=== PATIENT | male | born 1935 | race Caucasian/White ===

== ENCOUNTER 2018-11-15 15:09 | Inpatient (IN) | payer MEDICARE, MEDICAID ==
[2018-11-15 15:54] LABS: % BASOPHILS 0.2 % (0.0-2.0); % EOSINOPHILS 0.6 % (0.0-5.0); % LYMPHOCYTES 7.2 % (20.0-50.0); EOSINOPHILE ABSOLUTE 0.1 Th/cmm (0.1-0.4); HEMATOCRIT 37.1 % (41.0-60); HEMOGLOBIN 12.2 gm/dL (12-16); MEAN CELL VOLUME 96.8 fl (80-99); MEAN CORPUSCULAR HEMOGLOBIN 31.8 pg (27.0-31.0); MEAN CORPUSCULAR HGB CONC 32.8 pg (28.0-36.0); MEAN PLATELET VOLUME 7.6 fl; NEUTROPHILE ABSOLUTE 12.3 Th/cmm (1.8-8.0); PLATELET COUNT 241 Th/cmm (150-400); RED BLOOD COUNT 3.84 Mil/cmm (3.80-5.80); RED CELL DISTRIBUTION WIDTH 12.1 % (11.5-20.0); WHITE BLOOD COUNT 14.4 Th/cmm (4.8-10.8)
[2018-11-15 16:09] LABS: ALB/GLOB RATIO 1.1 (1.0-1.8); ALBUMIN 3.4 gm/dL (4.2-5.5); ALKALINE PHOSPHATASE 47 U/L (34-104); ANION GAP 11.5 (7.0-16.0); BILIRUBIN,TOTAL 0.2 mg/dL (0.3-1.0); BUN - UREA NITROGEN 29 mg/dL (7-25); CALCIUM SERUM 8.7 mg/dL (8.6-10.3); CARBON DIOXIDE 27.8 mEq/L (21.0-31.0); CHLORIDE 93 mEq/L (98-107); GLUCOSE 124 mg/dL (70-105); POTASSIUM SERUM 4.3 mEq/L (3.5-5.1); SGOT 12 U/L (13-39); SGPT/ALT 9 U/L (7-52); SODIUM SERUM 128 mEq/L (136-145); TOTAL PROTEIN,SERUM 6.5 gm/dL (6.0-8.3)
--- NOTE | 2018-11-15 16:25 | ED Physician Chart ---
ED Chief Complaint/HPI - Patient Information Date Seen:: 11/15/18 Time Seen:: 15:20 Chief Complaint:: weight loss of 16 pounds in 6 months History of Present Illness:: weight loss of 16 pounds in 6 months and 12 pounds in 3 months. Allergies:: Allergies Allergy/AdvReac Type Severity Reaction Status Date / Time No Known Allergies Allergy Unverified 04/07/17 00:43 Vitals:: Vital Signs - 8 hr 11/15/18 15:20 Temp 97.4 F HR 68 RR 19 BP 106/40 O2 Sat % 99 Review:: Nurse's Note Reviewed ED Review of Systems - Review of Systems General/Constitutional: No fever, No chills, Weight loss, Weakness, No diaphoresis, No edema, No loss of appetite Skin: No skin lesions, No rash, No bruising Head: No headache, No light-headedness Eyes: No loss of vision, No pain, No diplopia ENT: No earache, No nasal drainage, No sore throat, No tinnitus Neck: No neck pain, No swelling, No thyromegaly, No stiffness, No mass noted Cardio Vascular: No chest pain, No palpitations, No PND, No orthopnea, No edema Pulmonary: No SOB, No cough, No sputum, No wheezing GI: No nausea, No vomiting, No diarrhea, No pain, No melena, No hematochezia, No constipation, No hematemesis G/U: No dysuria, No frequency, No hematuria Musculoskeletal: No bone or joint pain, No back pain, No muscle pain Endocrine: No polyuria, No polydipsia Psychiatric: No prior psych history, No depression, No anxiety, No suicidal ideation ED Past Medical History - Past Medical History Obtainable: No Past Medical History: PUD/GERD, Thyroid disorder, Dementia, Other (cerebral palsy; GI hemorrhage; low potassium; chronic kidney disease; BPH) Psychiatricy History: Schizophrenia, Bipolar, Dementia Family Medical History - Family Member Mother History Unknown: Yes ED Physical Exam - Physical Examination General/Constitutional: Awake, No distress, Non-toxic appearing Other Gen/Cons comments:: chronically ill appearing Other Head comments:: microcephaly Eyes: Lids, conjuctiva normal, PERRL ENMT: External ears, nose nl Neck: Nontender, No nuchal rigidity, No stridor Respiratory: Nl effort/Exclusion, Clear to Auscultation, No Wheeze/Rhonchi/Rales Cardio Vascular: RRR, No murmur, gallop, rubs, NL S1 S2 GI: No tenderness/rebounding/guarding, No organomegaly, No hernia, Normal BS's, Nondistended, No mass/bruits, No McBurney tenderness Extremities: No tenderness or effusion, Full ROM, No edema ED Labs/Radiology/EKG Results - Lab Results Results: Laboratory Tests 11/15/18 11/15/18 15:48 15:48 WBC 14.4 H RBC 3.84 Hgb 12.2 Hct 37.1 L MCV 96.8 MCH 31.8 H MCHC Differential 32.8 RDW 12.1 Plt Count 241 MPV 7.6 Neutrophils % 85.0 H Lymphocytes % 7.2 L Monocytes % 7.0 Eosinophils % 0.6 Basophils % 0.2 Sodium 128 L Potassium 4.3 Chloride 93 L Carbon Dioxide 27.8 Anion Gap 11.5 BUN 29 H Creatinine 1.0 Est GFR ( Amer) TNP Est GFR (Non-Af Amer) TNP BUN/Creatinine Ratio 29.0 Glucose 124 H Calcium 8.7 Phosphorus 4.0 Magnesium 2.0 Total Bilirubin 0.2 L AST 12 L ALT 9 Alkaline Phosphatase 47 Total Protein 6.5 Albumin 3.4 L Globulin 3.1 Albumin/Globulin Ratio 1.1 ED Assessment - Assessment General Assessment: on my reading of the CXR, it appears that there is a right upper lobe mass. I am having the CXR sent to the radiologist to see if he agrees with my reading before I put in an order for a CT scan. sign out given to Dr. Willis at 4:24 p.m. ED Septic Shock - . Is Septic Shock (SBP<90, OR Lactate>4 mmol\L) present?: No - <6hrs of presentation: Vital Signs: Vital Signs - 8 hr 11/15/18 15:20 Temp 97.4 F HR 68 RR 19 BP 106/40 O2 Sat % 99 ED Reassessment (Disposition) - Reassessment Reassessment Condition:: Unchanged - Diagnosis Diagnosis:: Leukocytosis Possible right upper lobe mass Low sodium Low chloride sign out given to Dr. Willis at 4:15 p.m. - Patient Disposition Condition at Disposition:: Stable, Unchanged
[2018-11-15 16:32] LABS: URINE SOURCE CATH
[2018-11-15 16:34] LABS: URINE BILIRUBIN NEGATIVE (NEGATIVE); URINE BLOOD SMALL (NEGATIVE); URINE GLUCOSE (UA) NEGATIVE (NEGATIVE); URINE KETONE NEGATIVE (NEGATIVE); URINE LEUKOCYTE ESTERASE LARGE (NEGATIVE); URINE MICROSCOPIC INDICATED? YES; URINE NITRATE NEGATIVE (NEGATIVE); URINE PH 7.5 (4.6 - 8.0); URINE PROTEIN TRACE mg/dL (NEGATIVE); URINE UROBILINOGEN 0.2 E.U./dL (0.2 - 1.0)
[2018-11-15 16:40] LABS: URINE COLOR YELLOW
[2018-11-15 16:41] LABS: URINE CLARITY CLEAR (CLEAR)
[2018-11-15 16:50] LABS: URINE BACTERIA 3+ /hpf (NONE SEEN); URINE EPITHELIAL CELLS FEW /lpf (FEW)
[2018-11-15] MEDS ORDERED: IOHEXOL 300mgI/mL 100 ML VIAL ONE (16:56)
[2018-11-15] MEDS ORDERED: cefTRIAXone 1 GM in Sodium Chloride 0.9% 50 ML IV ONE (16:56)
[2018-11-15 18:27] VITALS: BP 122/58
[2018-11-15] MEDS ORDERED: Fleet Enema 135 mL RC PRN (18:58)
[2018-11-15] MEDS ORDERED: Polyvinyl Alcohol Ophth Soln 15 mL Bottle EACH EYE PRN (18:58)
[2018-11-15] MEDS ORDERED: Magnesium Hydroxide (MOM) 30 mL UDC PO PRN (18:58)
--- NOTE | 2018-11-15 19:38 | History & Physical ---
ADMIT DATE: 11/15/2018 INTERNAL MEDICINE HISTORY AND PHYSICAL CHIEF COMPLAINT: Poor p.o. intake, not taking medication, and generalized weakness. HISTORY OF PRESENT ILLNESS: This is an 83-year-old male with history of cerebral palsy, BPH, hypothyroid, GERD, and dementia, admitted from his nursing facility secondary to severe weight loss of greater than 10 pounds in the last several months. The patient has not been eating or taking his medication. The patient was brought in the ER, found to be dehydrated and with a possible mass on the chest x-ray. The patient also had a finding of urinary tract infection. The patient is a poor historian, unable to answer complex questions. PAST MEDICAL HISTORY: As mentioned in the history of present illness. PAST SURGICAL HISTORY: Unable to obtain from the patient. ALLERGIES: No known drug allergies. MEDICATIONS: Tylenol, aspirin, calcium, diltiazem, Depakote, Colace, ____, Synthroid, metoprolol, pantoprazole, potassium, prednisone, Detrol, vitamin D. FAMILY HISTORY: Noncontributory. SOCIAL HISTORY: The patient lives in a longterm. The patient requires 24-hour total care. REVIEW OF SYSTEMS: This is limited secondary to the patient's current mental state. We will try to obtain more detailed review of systems at a later date by talking to the family members, ____. We will try to get information from the nursing staff from the rehabilitation. PHYSICAL EXAMINATION: VITAL SIGNS: Blood pressure 106/40, respirations 19, pulse 68, temperature 97.4. GENERAL: Elderly male, appears chronically ill. NECK: Supple. No mass. LUNGS: Equal breath sounds with few rhonchi. HEART: Regular rate and rhythm without systolic ejection murmur. ABDOMEN: Soft, globular. EXTREMITIES: Positive excoriations. NEUROLOGIC: Limited. LABORATORY DATA: WBC 14, hemoglobin 12, platelets 241. Sodium 128, potassium 4.3, BUN 29, creatinine 1.0, glucose 124, AST and ALT 12 and 9, albumin 3.4. UA with many bacteria, large leukocytes and WBC. ASSESSMENT: 1. Urinary tract infection. 2. Generalized weakness. 3. Abnormal chest x-ray. 4. Weight loss. 5. Hypothyroidism. 6. Dementia. 7. Cerebral palsy. 8. Chronic kidney disorder. 9. Benign prostatic hypertrophy. 10. Psych disorder. PLAN: We will continue the patient on oxygen and bronchodilator treatment and continue antibiotic. We will follow the patient's urine culture and C and S. We will review the patient's chest x-ray and possibly need a CT of the chest. Continue with current care. We will follow the patient closely. [facility]# [id number]
[2018-11-15] MEDS: D5-0.9%NS 1,000 ML IV SCH (21:39)
[2018-11-15] MEDS: Diltiazem 30 mg Tab PO SCH (22:22)
[2018-11-16] MEDS: Levothyroxine 0.1 Mg Tab PO SCH (06:40)
[2018-11-16] MEDS: Ipratropium Neb 0.5 mg/2.5 mL UD HHN SCH ×4 (06:44→19:18)
[2018-11-16] MEDS: Albuterol Nebulizer 2.5mg/3mL HHN SCH ×4 (06:44→19:18)
--- NOTE | 2018-11-16 08:53 | Diagnostic Imaging Report ---
CT scan of the chest with intravenous contrast HISTORY: Mass. Total DLP equals 186 CTDI equals 5.7 Following administration of intravenous contrast, axial sections were obtained from a level above the clavicles down to level below the diaphragm. The heart size appears somewhat generous. Calcifications within the right hilar and mediastinal lymph nodes consistent with old granulomatous disease. Atherosclerotic calcination seen in the aorta. Infiltrate noted in the right upper lobe. Findings may be chronic. However, pneumonia cannot be excluded. Nonspecific interstitial changes also noted within the right lower lobe along with mild pleural thickening. The overall appearance suggests a chronic etiology. No free pleural fluid. IMPRESSION: 1. Infiltrate right upper lobe. The changes may be chronic. Pneumonia cannot be excluded. Clinical correlation is needed 2. Nonspecific interstitial changes right lower lobe with mild pleural thickening. The overall appearance suggests a chronic etiology. Mild pleural thickening also noted in the left lower hemithorax. Question minimal pleural fluid. 3. Findings consistent with old granulomatous disease 4. Generous heart size of evidence of atherosclerotic and coronary artery calcification
--- NOTE | 2018-11-16 08:56 | Diagnostic Imaging Report ---
Portable chest x-ray HISTORY: Weight loss Patient is markedly rotated. The heart appears somewhat enlarged. Cardiac pacemaker lead wire projects over the right ventricle. Suboptimal visualization of the right apical region of the chest due to patient's overlying head. Questionable density within the right apical area. A CT scan would provide additional clarification. No pleural fluid is seen. IMPRESSION: 1. Limited evaluation particularly of the right apical region. Questionable density within the right upper lobe. A CT scan would provide clarification. 2. Cardiomegaly with pacemaker placement
[2018-11-16] MEDS ORDERED: Tolterodine Tartrate 4 mg ER Cap PO SCH (09:00)
[2018-11-16] MEDS: Multivitamin w/ Minerals Tab PO SCH (09:10)
[2018-11-16] MEDS: Potassium Chloride 10 mEq ER Tab PO SCH (09:10)
[2018-11-16] MEDS: Pantoprazole 40 mg EC Tab PO SCH (09:10)
[2018-11-16] MEDS: Diltiazem 30 mg Tab PO SCH ×3 (09:11→21:30)
[2018-11-16] MEDS: Aspirin 81mg Chewable Tab PO SCH (09:12)
[2018-11-16] MEDS: Calcium Carb/Vit D 500 mg/200 U Tab PO SCH (12:31)
[2018-11-16] MEDS: D5-0.9%NS 1,000 ML IV SCH (12:51)
--- NOTE | 2018-11-16 13:07 | Internal Medicine Prog Note ---
Internal Medicine Subjective - Subjective Service Date: 11/16/18 Patient seen and examined:: with staff Patient is:: awake Per staff patient has:: tolerating meds Internal Medicine Objective - Results Result Diagrams: 11/15/18 15:48 11/15/18 15:48 Recent Labs: Laboratory Last Values WBC 14.4 Th/cmm (4.8-10.8) H 11/15/18 15:48 RBC 3.84 Mil/cmm (3.80-5.80) 11/15/18 15:48 Hgb 12.2 gm/dL (12-16) 11/15/18 15:48 Hct 37.1 % (41.0-60) L 11/15/18 15:48 MCV 96.8 fl (80-99) 11/15/18 15:48 MCH 31.8 pg (27.0-31.0) H 11/15/18 15:48 MCHC Differential 32.8 pg (28.0-36.0) 11/15/18 15:48 RDW 12.1 % (11.5-20.0) 11/15/18 15:48 Plt Count 241 Th/cmm (150-400) 11/15/18 15:48 MPV 7.6 fl 11/15/18 15:48 Neutrophils % 85.0 % (40.0-80.0) H 11/15/18 15:48 Lymphocytes % 7.2 % (20.0-50.0) L 11/15/18 15:48 Monocytes % 7.0 % (2.0-10.0) 11/15/18 15:48 Eosinophils % 0.6 % (0.0-5.0) 11/15/18 15:48 Basophils % 0.2 % (0.0-2.0) 11/15/18 15:48 Sodium 128 mEq/L (136-145) L 11/15/18 15:48 Potassium 4.3 mEq/L (3.5-5.1) 11/15/18 15:48 Chloride 93 mEq/L (98-107) L 11/15/18 15:48 Carbon Dioxide 27.8 mEq/L (21.0-31.0) 11/15/18 15:48 Anion Gap 11.5 (7.0-16.0) 11/15/18 15:48 BUN 29 mg/dL (7-25) H 11/15/18 15:48 Creatinine 1.0 mg/dL (0.7-1.3) 11/15/18 15:48 Est GFR ( Amer) TNP 11/15/18 15:48 Est GFR (Non-Af Amer) TNP 11/15/18 15:48 BUN/Creatinine Ratio 29.0 11/15/18 15:48 Glucose 124 mg/dL (70-105) H 11/15/18 15:48 Calcium 8.7 mg/dL (8.6-10.3) 11/15/18 15:48 Phosphorus 4.0 mg/dL (2.5-5.0) 11/15/18 15:48 Magnesium 2.0 mg/dL (1.9-2.7) 11/15/18 15:48 Total Bilirubin 0.2 mg/dL (0.3-1.0) L 11/15/18 15:48 AST 12 U/L (13-39) L 11/15/18 15:48 ALT 9 U/L (7-52) 11/15/18 15:48 Alkaline Phosphatase 47 U/L (34-104) 11/15/18 15:48 Total Protein 6.5 gm/dL (6.0-8.3) 11/15/18 15:48 Albumin 3.4 gm/dL (4.2-5.5) L 11/15/18 15:48 Globulin 3.1 gm/dL 11/15/18 15:48 Albumin/Globulin Ratio 1.1 (1.0-1.8) 11/15/18 15:48 TSH 3.04 uIU/ml (0.34-5.60) 11/15/18 15:48 Urine Source CATH 11/15/18 16:23 Urine Color YELLOW 11/15/18 16:23 Urine Clarity CLEAR (CLEAR) 11/15/18 16:23 Urine pH 7.5 (4.6 - 8.0) 11/15/18 16:23 Ur Specific Imperial 1.015 (1.005-1.030) 11/15/18 16:23 Urine Protein TRACE mg/dL (NEGATIVE) 11/15/18 16:23 Urine Glucose (UA) NEGATIVE mg/dL (NEGATIVE) 11/15/18 16:23 Urine Ketones NEGATIVE mg/dL (NEGATIVE) 11/15/18 16:23 Urine Blood SMALL (NEGATIVE) H 11/15/18 16:23 Urine Nitrate NEGATIVE (NEGATIVE) 11/15/18 16:23 Urine Bilirubin NEGATIVE (NEGATIVE) 11/15/18 16:23 Urine Urobilinogen 0.2 E.U./dL (0.2 - 1.0) 11/15/18 16:23 Ur Leukocyte Esterase LARGE (NEGATIVE) H 11/15/18 16:23 Urine RBC 2-5 /hpf (0-5) H 11/15/18 16:23 Urine WBC 6-10 /hpf (0-5) 11/15/18 16:23 Ur Epithelial Cells FEW /lpf (FEW) 11/15/18 16:23 Urine Bacteria 3+ /hpf (NONE SEEN) H 11/15/18 16:23 - Physical Exam Vitals and I&O: Vital Signs Temp 97.2 F 11/16/18 12:00 Pulse 137 11/16/18 12:00 Resp 18 11/16/18 12:00 BP 103/49 11/16/18 12:00 Pulse Ox 93 11/16/18 12:00 Intake & Output 11/15/18 11/16/18 11/16/18 18:59 06:59 18:59 Intake Total 150 1000 Balance 150 1000 Weight (lbs) 127 lb 11.2 oz 125 lb 9.6 oz Intake: Intake, IV Amount 50 1000 Cefepime 1 gm In Dextrose 50 5% 50 ml @ 100 mls/hr IV Q12HR REPLACED BY [facility] Rx#:[id number] D5-0.9%Ns 1,000 ml @ 80 1000 mls/hr IV .[id number] REPLACED BY [facility] Rx #:[id number] Oral 100 Other: # Voids 2 # Bowel Movements 0 Weight Source Bedscale Bedscale Active Medications: Current Medications Acetaminophen (Tylenol) 650 mg PO Q4HR PRN PRN Reason: MILD PAIN 1-3 OR FEVER >101 Stop: 01/14/19 18:57 Albuterol Sulfate (Albuterol 2.5mg/3ml Neb Ud) 2.5 mg HHN QIDRT REPLACED BY [facility] Stop: 01/15/19 06:59 Last Admin: 11/16/18 10:41 Dose: 2.5 mg Artificial Tears (Artificial Tears Ophth Soln) 1 drop EACH EYE BID PRN PRN Reason: DRY EYES Stop: 01/14/19 18:57 Ascorbic Acid (Vitamin C) 500 mg PO DAILY REPLACED BY [facility] Stop: 01/15/19 08:59 Last Admin: 11/16/18 09:11 Dose: 500 mg Aspirin (Aspirin Chewable) 81 mg PO DAILY REPLACED BY [facility] Stop: 01/15/19 08:59 Last Admin: 11/16/18 09:12 Dose: 81 mg Bisacodyl (Dulcolax 10 Mg Supp) 10 mg RC DAILY PRN PRN Reason: IF MOM INEFFECTIVE Stop: 01/14/19 18:57 Calcium/Vitamin D (Oscal W/Vitamin D) 1 tab PO 1200 REPLACED BY [facility] Stop: 01/15/19 11:59 Last Admin: 11/16/18 12:31 Dose: 1 tab Diltiazem HCl (Cardizem) 30 mg PO TID REPLACED BY [facility] Stop: 01/14/19 20:59 Last Admin: 11/16/18 09:11 Dose: 30 mg Divalproex Sodium (Depakote Sprinkle) 250 mg PO BID REPLACED BY [facility]; Protocol Stop: 01/15/19 08:59 Last Admin: 11/16/18 09:11 Dose: 250 mg Docusate Sodium (Colace) 100 mg PO DAILY REPLACED BY [facility] Stop: 01/15/19 08:59 Last Admin: 11/16/18 09:12 Dose: 100 mg Donepezil HCl (Aricept) 10 mg PO HS REPLACED BY [facility] Stop: 01/14/19 20:59 Last Admin: 11/15/18 22:23 Dose: 10 mg Cefepime HCl 1 gm/ Dextrose 50 mls @ 100 mls/hr IV Q12HR CHAD Stop: 01/14/19 20:59 Last Admin: 11/16/18 09:09 Dose: 100 mls/hr Dextrose/Sodium Chloride (D5-0.9%Ns) 1,000 mls @ 80 mls/hr IV .[id number] REPLACED BY [facility] Stop: 01/14/19 20:14 Last Admin: 11/16/18 12:51 Dose: 80 mls/hr Ipratropium [place] (Atrovent Neb 0.5mg/2.5ml) 0.5 mg HHN QIDRT REPLACED BY [facility] Stop: 01/15/19 06:59 Last Admin: 11/16/18 10:41 Dose: 0.5 mg Levothyroxine Sodium (Synthroid) 0.1 mg PO QDAC REPLACED BY [facility] Stop: 01/15/19 07:29 Last Admin: 11/16/18 06:40 Dose: 0.1 mg Magnesium Hydroxide (Milk Of Magnesia) 30 ml PO DAILY PRN PRN Reason: Constipation Stop: 01/14/19 18:57 Magnesium Oxide (Mag-Oxide) 400 mg PO DAILY CHAD Stop: 01/15/19 08:59 Last Admin: 11/16/18 09:10 Dose: 400 mg Metoprolol Tartrate (Lopressor) 25 mg PO BID REPLACED BY [facility] Stop: 01/15/19 08:59 Last Admin: 11/16/18 09:11 Dose: Not Given Nitroglycerin (Nitrostat) 0.4 mg SL Q5MIN PRN PRN Reason: Chest Pain Stop: 01/14/19 18:57 Ondansetron HCl (Zofran) 4 mg IV Q8H PRN PRN Reason: Nausea / Vomiting Stop: 01/14/19 19:00 Pantoprazole Sodium (Protonix) 40 mg PO DAILY REPLACED BY [facility] Stop: 01/15/19 08:59 Last Admin: 11/16/18 09:10 Dose: 40 mg Potassium Chloride (Klor-Con) 10 meq PO DAILY REPLACED BY [facility] Stop: 01/15/19 08:59 Last Admin: 11/16/18 09:10 Dose: 10 meq Prednisone (Deltasone) 2.5 mg PO DAILY REPLACED BY [facility] Stop: 01/15/19 08:59 Last Admin: 11/16/18 09:11 Dose: 2.5 mg Sodium Phosphate (Fleet Enema) 135 ml RC Q48H PRN PRN Reason: IF DULCOLAX INEFFECTIVE Stop: 01/14/19 18:57 Tamsulosin HCl (Flomax) 0.4 mg PO HS REPLACED BY [facility] Stop: 01/14/19 20:59 Last Admin: 11/15/18 22:19 Dose: 0.4 mg Tolterodine Tartrate (Detrol) 2 mg PO BID REPLACED BY [facility] Stop: 01/15/19 08:59 Last Admin: 11/16/18 09:10 Dose: 2 mg Vitamin D (Vitamin D) 400 iu PO BID REPLACED BY [facility] Stop: 01/15/19 08:59 Last Admin: 11/16/18 09:10 Dose: 400 iu General: alert HEENT: NC/AT, PERRLA Neck: Supple Lungs: CTAB Cardiovascular: RRR, Normal S1, Normal S2, without murmur Abdomen: soft, non-tender, non-distended, positive bowel sound - Procedures Procedures: Procedures Procedure Code Date CLOSURE SKIN & SUBCUTANEOUS NEC 86.59 08/21/01 COLONOSCOPY AND BIOPSY 66359 09/04/12 CONTINUED VENTILATOR MGMT 73020 09/15/01 CONTINUOUS INVASIVE MECHANICAL VENTILATION =/>96 CONSEC HRS 96.72 09/15/01 EGD BIOPSY SINGLE/MULTIPLE 67720 04/06/17 EGD DIAGNOSTIC BRUSH WASH 19634 01/29/10 ENDOSC POLYPECTOMY OF LG INTEST 45.42 09/04/12 ESOPHAGOGASTRODUODENOSCOPY [EGD] W/CLOSED BIOPSY 45.16 07/04/14 EXCISION OF STOMACH, ENDO, DIAGN [id number] 04/06/17 INCISION OF WINDPIPE [id number] 09/15/01 INITIAL INSERT OF TRANS. LEADS INTO VENTRICLE 37.71 09/15/01 INITIAL VENTILATOR MGMT 16185 09/15/01 INSERT EMERGENCY AIRWAY 21841 09/15/01 INSERT ENDOTRACHEAL TUBE 96.04 09/15/01 INSERT HEART PM VENTRICULAR 75201 09/15/01 INSERT SING CHAMB DEV, NOT SPEC RATE RESPONSIVE 37.81 09/15/01 INSERTION OF CHEST TUBE 06465 09/15/01 INTRODUCTION OF SERUM/TOX/VACCINE INTO MUSCLE, PERC APPROACH [id number] 04/06/17 NON-INVASIVE MECHANICAL VENTILATION 93.90 01/29/10 OTHER ENDOSCOPY OF SM INTEST 45.13 01/29/10 OTHER PERM TRACHEOSTOMY 31.29 09/15/01 OTHER PLEURAL INCISION 34.09 09/15/01 RPR S/N/AX/GEN/TRNK2.6-7.5CM 58165 08/21/01 Internal Medicine Assmt/Plan - Assessment Assessment: acute uti generalized weakness weight loss hypothyroidism dementia cerebral palsy ckd bph psychosis - Plan Plan: monitor i+o ivf for hydration ivabx to continue follow up labs in am
[2018-11-17] MEDS: D5-0.9%NS 1,000 ML IV SCH ×2 (01:08→16:27)
[2018-11-17 06:50] LABS: % BASOPHILS 0.3 % (0.0-2.0); % MONOCYTES 11.2 % (2.0-10.0); % NEUTROPHILS 74.5 % (40.0-80.0); EOSINOPHILE ABSOLUTE 0.1 Th/cmm (0.1-0.4); HEMATOCRIT 35.6 % (41.0-60); HEMOGLOBIN 12.1 gm/dL (12-16); LYMPHOCYTE ABSOLUTE 1.5 Th/cmm (1.5-3.0); MEAN CELL VOLUME 97.5 fl (80-99); MEAN CORPUSCULAR HEMOGLOBIN 33.1 pg (27.0-31.0); MEAN CORPUSCULAR HGB CONC 33.9 pg (28.0-36.0); MEAN PLATELET VOLUME 7.9 fl; MONOCYTE ABSOLUTE 1.3 Th/cmm (0.3-1.0); NEUTROPHILE ABSOLUTE 8.4 Th/cmm (1.8-8.0); PLATELET COUNT 216 Th/cmm (150-400); RED BLOOD COUNT 3.65 Mil/cmm (3.80-5.80); RED CELL DISTRIBUTION WIDTH 12.3 % (11.5-20.0); WHITE BLOOD COUNT 11.3 Th/cmm (4.8-10.8)
[2018-11-17] MEDS: Levothyroxine 0.1 Mg Tab PO SCH (07:04)
[2018-11-17] MEDS: Albuterol Nebulizer 2.5mg/3mL HHN SCH ×4 (07:09→19:00)
[2018-11-17] MEDS: Ipratropium Neb 0.5 mg/2.5 mL UD HHN SCH ×4 (07:09→19:04)
[2018-11-17 07:13] LABS: ANION GAP 10.2 (7.0-16.0); BUN - UREA NITROGEN 23 mg/dL (7-25); CALCIUM SERUM 8.9 mg/dL (8.6-10.3); CARBON DIOXIDE 27.5 mEq/L (21.0-31.0); CHLORIDE 100 mEq/L (98-107); CREATININE - SERUM 0.7 mg/dL (0.7-1.3); GLUCOSE 84 mg/dL (70-105); POTASSIUM SERUM 4.7 mEq/L (3.5-5.1); SODIUM SERUM 133 mEq/L (136-145)
[2018-11-17] MEDS: Pantoprazole 40 mg EC Tab PO SCH (08:25)
[2018-11-17] MEDS: Aspirin 81mg Chewable Tab PO SCH (08:26)
[2018-11-17] MEDS: Multivitamin w/ Minerals Tab PO SCH (08:26)
[2018-11-17] MEDS: Potassium Chloride 10 mEq ER Tab PO SCH (08:26)
[2018-11-17] MEDS: Diltiazem 30 mg Tab PO SCH ×4 (08:30→21:30)
[2018-11-17] MEDS: Calcium Carb/Vit D 500 mg/200 U Tab PO SCH (11:32)
--- NOTE | 2018-11-17 16:40 | Internal Medicine Prog Note ---
Internal Medicine Subjective - Subjective Service Date: 11/17/18 Patient is:: awake Per staff patient has:: tolerating meds Internal Medicine Objective - Results Result Diagrams: 11/17/18 06:00 11/17/18 06:00 Recent Labs: Laboratory Last Values WBC 11.3 Th/cmm (4.8-10.8) H 11/17/18 06:00 RBC 3.65 Mil/cmm (3.80-5.80) L 11/17/18 06:00 Hgb 12.1 gm/dL (12-16) 11/17/18 06:00 Hct 35.6 % (41.0-60) L 11/17/18 06:00 MCV 97.5 fl (80-99) 11/17/18 06:00 MCH 33.1 pg (27.0-31.0) H 11/17/18 06:00 MCHC Differential 33.9 pg (28.0-36.0) 11/17/18 06:00 RDW 12.3 % (11.5-20.0) 11/17/18 06:00 Plt Count 216 Th/cmm (150-400) 11/17/18 06:00 MPV 7.9 fl 11/17/18 06:00 Neutrophils % 74.5 % (40.0-80.0) 11/17/18 06:00 Lymphocytes % 13.0 % (20.0-50.0) L 11/17/18 06:00 Monocytes % 11.2 % (2.0-10.0) H 11/17/18 06:00 Eosinophils % 1.0 % (0.0-5.0) 11/17/18 06:00 Basophils % 0.3 % (0.0-2.0) 11/17/18 06:00 Sodium 133 mEq/L (136-145) L 11/17/18 06:00 Potassium 4.7 mEq/L (3.5-5.1) 11/17/18 06:00 Chloride 100 mEq/L (98-107) 11/17/18 06:00 Carbon Dioxide 27.5 mEq/L (21.0-31.0) 11/17/18 06:00 Anion Gap 10.2 (7.0-16.0) 11/17/18 06:00 BUN 23 mg/dL (7-25) 11/17/18 06:00 Creatinine 0.7 mg/dL (0.7-1.3) 11/17/18 06:00 Est GFR ( Amer) TNP 11/17/18 06:00 Est GFR (Non-Af Amer) [facility] 11/17/18 06:00 BUN/Creatinine Ratio 32.9 11/17/18 06:00 Glucose 84 mg/dL (70-105) 11/17/18 06:00 Calcium 8.9 mg/dL (8.6-10.3) 11/17/18 06:00 Phosphorus 4.0 mg/dL (2.5-5.0) 11/15/18 15:48 Magnesium 2.0 mg/dL (1.9-2.7) 11/15/18 15:48 Total Bilirubin 0.2 mg/dL (0.3-1.0) L 11/15/18 15:48 AST 12 U/L (13-39) L 11/15/18 15:48 ALT 9 U/L (7-52) 11/15/18 15:48 Alkaline Phosphatase 47 U/L (34-104) 11/15/18 15:48 Total Protein 6.5 gm/dL (6.0-8.3) 11/15/18 15:48 Albumin 3.4 gm/dL (4.2-5.5) L 11/15/18 15:48 Globulin 3.1 gm/dL 11/15/18 15:48 Albumin/Globulin Ratio 1.1 (1.0-1.8) 11/15/18 15:48 TSH 3.04 uIU/ml (0.34-5.60) 11/15/18 15:48 Urine Source CATH 11/15/18 16:23 Urine Color YELLOW 11/15/18 16:23 Urine Clarity CLEAR (CLEAR) 11/15/18 16:23 Urine pH 7.5 (4.6 - 8.0) 11/15/18 16:23 Ur Specific [place] 1.015 (1.005-1.030) 11/15/18 16:23 Urine Protein TRACE mg/dL (NEGATIVE) 11/15/18 16:23 Urine Glucose (UA) NEGATIVE mg/dL (NEGATIVE) 11/15/18 16:23 Urine Ketones NEGATIVE mg/dL (NEGATIVE) 11/15/18 16:23 Urine Blood SMALL (NEGATIVE) H 11/15/18 16:23 Urine Nitrate NEGATIVE (NEGATIVE) 11/15/18 16:23 Urine Bilirubin NEGATIVE (NEGATIVE) 11/15/18 16:23 Urine Urobilinogen 0.2 E.U./dL (0.2 - 1.0) 11/15/18 16:23 Ur Leukocyte Esterase LARGE (NEGATIVE) H 11/15/18 16:23 Urine RBC 2-5 /hpf (0-5) H 11/15/18 16:23 Urine WBC 6-10 /hpf (0-5) 11/15/18 16:23 Ur Epithelial Cells FEW /lpf (FEW) 11/15/18 16:23 Urine Bacteria 3+ /hpf (NONE SEEN) H 11/15/18 16:23 - Physical Exam Vitals and I&O: Vital Signs Temp 97.3 F 11/17/18 15:47 Pulse 90 11/17/18 16:31 Resp 18 11/17/18 15:47 BP 111/48 11/17/18 16:31 Pulse Ox 95 11/17/18 15:47 Intake & Output 11/16/18 11/17/18 11/17/18 18:59 06:59 18:59 Intake Total 1350 7251.544 5789 Balance 1350 2373.206 8302 Weight (lbs) 125 lb Intake: Intake, IV Amount 1050 9595.937 4497 Cefepime 1 gm In Dextrose 50 50 50 5% 50 ml @ 100 mls/hr IV Q12HR [facility] Rx#:[id number] D5-0.9%Ns 1,000 ml @ 80 1000 210.942 6376 mls/hr IV .[id number] [facility] Rx #:[id number] Oral 300 Other: # Voids 3 # Bowel Movements 1 Weight Source Bedscale Active Medications: Current Medications Acetaminophen (Tylenol) 650 mg PO Q4HR PRN PRN Reason: MILD PAIN 1-3 OR FEVER >101 Stop: 01/14/19 18:57 Albuterol Sulfate (Albuterol 2.5mg/3ml Neb Ud) 2.5 mg HHN QIDRT [facility] Stop: 01/15/19 06:59 Last Admin: 11/17/18 14:15 Dose: Not Given Artificial Tears (Artificial Tears Ophth Sol) 1 drop EACH EYE BID PRN PRN Reason: DRY EYES Stop: 01/14/19 18:57 Ascorbic Acid (Vitamin C) 500 mg PO DAILY [facility] Stop: 01/15/19 08:59 Last Admin: 11/17/18 08:25 Dose: 500 mg Aspirin (Aspirin Chewable) 81 mg PO DAILY [facility] Stop: 01/15/19 08:59 Last Admin: 11/17/18 08:26 Dose: 81 mg Bisacodyl (Dulcolax 10 Mg Supp) 10 mg RC DAILY PRN PRN Reason: IF MOM INEFFECTIVE Stop: 01/14/19 18:57 Calcium/Vitamin D (Oscal W/Vitamin D) 1 tab PO 1200 [facility] Stop: 01/15/19 11:59 Last Admin: 11/17/18 11:32 Dose: 1 tab Diltiazem HCl (Cardizem) 30 mg PO TID [facility] Stop: 01/14/19 20:59 Last Admin: 11/17/18 14:51 Dose: 30 mg Divalproex Sodium (Depakote Sprinkle) 250 mg PO BID [facility]; Protocol Stop: 01/15/19 08:59 Last Admin: 11/17/18 16:30 Dose: 250 mg Docusate Sodium (Colace) 100 mg PO DAILY [facility] Stop: 01/15/19 08:59 Last Admin: 11/17/18 08:24 Dose: 100 mg Donepezil HCl (Aricept) 10 mg PO HS [facility] Stop: 01/14/19 20:59 Last Admin: 11/16/18 21:30 Dose: 10 mg Dextrose/Sodium Chloride (D5-0.9%Ns) 1,000 mls @ 80 mls/hr IV .[id number] [facility] Stop: 01/14/19 20:14 Last Admin: 11/17/18 16:27 Dose: 80 mls/hr Piperacillin Sod/Tazobactam (Sod 3.375 gm/ Sodium Chloride) 50 mls @ 100 mls/ hr IV Q6HR [facility] Stop: 01/16/19 17:59 Ipratropium [place] (Atrovent Neb 0.5mg/2.5ml) 0.5 mg HHN QIDRT [facility] Stop: 01/15/19 06:59 Last Admin: 11/17/18 14:15 Dose: Not Given Levothyroxine Sodium (Synthroid) 0.1 mg PO QDAC [facility] Stop: 01/15/19 07:29 Last Admin: 11/17/18 07:04 Dose: 0.1 mg Magnesium Hydroxide (Milk Of Magnesia) 30 ml PO DAILY PRN PRN Reason: Constipation Stop: 01/14/19 18:57 Magnesium Oxide (Mag-Oxide) 400 mg PO DAILY [facility] Stop: 01/15/19 08:59 Last Admin: 11/17/18 08:25 Dose: 400 mg Metoprolol Tartrate (Lopressor) 25 mg PO BID [facility] Stop: 01/15/19 08:59 Last Admin: 11/17/18 16:31 Dose: 25 mg Nitroglycerin (Nitrostat) 0.4 mg SL Q5MIN PRN PRN Reason: Chest Pain Stop: 01/14/19 18:57 Ondansetron HCl (Zofran) 4 mg IV Q8H PRN PRN Reason: Nausea / Vomiting Stop: 01/14/19 19:00 Pantoprazole Sodium (Protonix) 40 mg PO DAILY [facility] Stop: 01/15/19 08:59 Last Admin: 11/17/18 08:25 Dose: 40 mg Potassium Chloride (Klor-Con) 10 meq PO DAILY [facility] Stop: 01/15/19 08:59 Last Admin: 11/17/18 08:26 Dose: 10 meq Prednisone (Deltasone) 2.5 mg PO DAILY [facility] Stop: 01/15/19 08:59 Last Admin: 11/17/18 08:26 Dose: 2.5 mg Sodium Phosphate (Fleet Enema) 135 ml RC Q48H PRN PRN Reason: IF DULCOLAX INEFFECTIVE Stop: 01/14/19 18:57 Tamsulosin HCl (Flomax) 0.4 mg PO HS [facility] Stop: 01/14/19 20:59 Last Admin: 11/16/18 21:30 Dose: 0.4 mg Tolterodine Tartrate (Detrol) 2 mg PO BID [facility] Stop: 01/15/19 08:59 Last Admin: 11/17/18 08:26 Dose: 2 mg Vitamin D (Vitamin D) 400 iu PO BID [facility] Stop: 01/15/19 08:59 Last Admin: 11/17/18 16:31 Dose: 400 iu General: alert HEENT: NC/AT, PERRLA Neck: Supple Lungs: CTAB Cardiovascular: RRR, Normal S1, Normal S2, without murmur Abdomen: soft, non-tender, non-distended, positive bowel sound - Procedures Procedures: Procedures Procedure Code Date CLOSURE SKIN & SUBCUTANEOUS NEC 86.59 08/21/01 COLONOSCOPY AND BIOPSY 60079 09/04/12 CONTINUED VENTILATOR MGMT 67645 09/15/01 CONTINUOUS INVASIVE MECHANICAL VENTILATION =/>96 CONSEC HRS 96.72 09/15/01 EGD BIOPSY SINGLE/MULTIPLE 54846 04/06/17 EGD DIAGNOSTIC BRUSH WASH 29122 01/29/10 ENDOSC POLYPECTOMY OF LG INTEST 45.42 09/04/12 ESOPHAGOGASTRODUODENOSCOPY [EGD] W/CLOSED BIOPSY 45.16 07/04/14 EXCISION OF STOMACH, ENDO, DIAGN [id number] 04/06/17 INCISION OF [place] 81981 09/15/01 INITIAL INSERT OF TRANS. LEADS INTO VENTRICLE 37.71 09/15/01 INITIAL VENTILATOR MGMT 96395 09/15/01 INSERT EMERGENCY AIRWAY 66297 09/15/01 INSERT ENDOTRACHEAL TUBE 96.04 09/15/01 INSERT HEART PM VENTRICULAR 23954 09/15/01 INSERT SING CHAMB DEV, NOT SPEC RATE RESPONSIVE 37.81 09/15/01 INSERTION OF CHEST TUBE 17046 09/15/01 INTRODUCTION OF SERUM/TOX/VACCINE INTO MUSCLE, PERC APPROACH [id number] 04/06/17 NON-INVASIVE MECHANICAL VENTILATION 93.90 01/29/10 OTHER ENDOSCOPY OF SM INTEST 45.13 01/29/10 OTHER PERM TRACHEOSTOMY 31.29 09/15/01 OTHER PLEURAL INCISION 34.09 09/15/01 RPR S/N/AX/GEN/TRNK2.6-7.5CM 59682 08/21/01 Internal Medicine Assmt/Plan - Assessment Assessment: acute uti with proteus mirabilis esbl generalized weakness weight loss hypothyroidism dementia cerebral palsy ckd bph psychosis - Plan Plan: dc cefepime start zosyn monitor i+o ivf for hydration ivabx to continue follow up labs in am
[2018-11-18] MEDS: Levothyroxine 0.1 Mg Tab PO SCH (06:38)
[2018-11-18 07:13] LABS: % BASOPHILS 0.3 % (0.0-2.0); % EOSINOPHILS 1.5 % (0.0-5.0); % LYMPHOCYTES 14.1 % (20.0-50.0); % NEUTROPHILS 73.1 % (40.0-80.0); EOSINOPHILE ABSOLUTE 0.2 Th/cmm (0.1-0.4); HEMATOCRIT 34.7 % (41.0-60); HEMOGLOBIN 11.9 gm/dL (12-16); LYMPHOCYTE ABSOLUTE 1.5 Th/cmm (1.5-3.0); MEAN CELL VOLUME 96.2 fl (80-99); MEAN CORPUSCULAR HEMOGLOBIN 33.1 pg (27.0-31.0); MEAN CORPUSCULAR HGB CONC 34.4 pg (28.0-36.0); MEAN PLATELET VOLUME 8.3 fl; MONOCYTE ABSOLUTE 1.2 Th/cmm (0.3-1.0); NEUTROPHILE ABSOLUTE 7.8 Th/cmm (1.8-8.0); PLATELET COUNT 179 Th/cmm (150-400); RED BLOOD COUNT 3.61 Mil/cmm (3.80-5.80); RED CELL DISTRIBUTION WIDTH 12.1 % (11.5-20.0); WHITE BLOOD COUNT 10.7 Th/cmm (4.8-10.8)
[2018-11-18 07:25] LABS: ANION GAP 10.3 (7.0-16.0); BUN - UREA NITROGEN 18 mg/dL (7-25); CALCIUM SERUM 8.8 mg/dL (8.6-10.3); CARBON DIOXIDE 28.3 mEq/L (21.0-31.0); CHLORIDE 98 mEq/L (98-107); CREATININE - SERUM 0.7 mg/dL (0.7-1.3); GLUCOSE 83 mg/dL (70-105); POTASSIUM SERUM 4.6 mEq/L (3.5-5.1); SODIUM SERUM 132 mEq/L (136-145)
[2018-11-18] MEDS: Albuterol Nebulizer 2.5mg/3mL HHN SCH ×4 (07:31→18:42)
[2018-11-18] MEDS: Ipratropium Neb 0.5 mg/2.5 mL UD HHN SCH ×4 (07:31→18:42)
[2018-11-18] MEDS: Diltiazem 30 mg Tab PO SCH ×2 (10:29→14:53)
[2018-11-18] MEDS: Aspirin 81mg Chewable Tab PO SCH (10:32)
[2018-11-18] MEDS: Multivitamin w/ Minerals Tab PO SCH (10:32)
[2018-11-18] MEDS: Potassium Chloride 10 mEq ER Tab PO SCH (10:49)
[2018-11-18] MEDS: Pantoprazole 40 mg EC Tab PO SCH (10:54)
[2018-11-18] MEDS: D5-0.9%NS 1,000 ML IV SCH (11:00)
[2018-11-18] MEDS: Calcium Carb/Vit D 500 mg/200 U Tab PO SCH (11:34)
--- NOTE | 2018-11-18 20:14 | Discharge Summary ---
DATE OF DISCHARGE: 11/18/2018 CHIEF COMPLAINT: Poor p.o. intake, not taking medication and generalized weakness. FINAL DIAGNOSES: Urinary tract infection, generalized weakness, abnormal chest x-ray, weight loss, hypothyroidism, dementia, cerebral palsy, chronic kidney disorder, BPH, psych disorder. HISTORY: This is an 83-year-old male with history of cerebral palsy, BPH, hypothyroidism, GERD, dementia, admitted from nursing facility secondary to severe weight loss of greater than 10 pounds in one month, not eating, not taking medication. The patient was brought to the ER and noted to be dehydrated, also has a possible tumor on the chest x-ray. PHYSICAL EXAMINATION: VITAL SIGNS: Blood pressure 104/50, respirations 18, pulse 76, temperature 98.4. GENERAL: Elderly male, appears chronically ill, but ____. LUNGS: Equal breath sounds, few rhonchi. HEART: Regular rate and rhythm. Systolic ejection murmur. ABDOMEN: Soft, globular. EXTREMITIES: Positive excoriation. NEUROLOGIC: Limited. HOSPITAL COURSE: The patient was admitted to telemetry, continued oxygen and bronchodilator treatment, IV antibiotic, IV hydrations. The patient had CT, which did not show any chest tumor. The patient to be discharged to long-term acute care for continued care and treatment. CONDITION ON DISCHARGE: Fair. OVERALL PROGNOSIS: Poor. DISCHARGE INSTRUCTIONS: The patient to continue with current care with IV antibiotic. JOB# [id number]
== END 2018-11-18 19:55 | DRG 871 ==
LOC: ER 15:09 → MSI 17:14 → TELE 11-16 15:44
PROVIDERS: ADMIT Internal Medicine; ATTEND Internal Medicine
DX: A41.9 Sepsis, unspecified organism (principal); R53.2 Functional quadriplegia; N39.0 Urinary tract infection, site not specified; E87.1 Hypo-osmolality and hyponatremia; F03.90 Unspecified dementia, unspecified severity, without behavioral disturbance, psychotic disturbance, mood disturbance, and anxiety; G80.9 Cerebral palsy, unspecified; N40.0 Benign prostatic hyperplasia without lower urinary tract symptoms; N18.9 Chronic kidney disease, unspecified; K21.9 Gastro-esophageal reflux disease without esophagitis; E03.9 Hypothyroidism, unspecified; E86.0 Dehydration; R63.4 Abnormal weight loss; F29 Unspecified psychosis not due to a substance or known physiological condition; B96.4 Proteus (mirabilis) (morganii) as the cause of diseases classified elsewhere; Z16.12 Extended spectrum beta lactamase (ESBL) resistance; Z68.21 Body mass index [BMI] 21.0-21.9, adult
CPT/HCPCS: 36415-UA; 71045-TC; 71260-TC; 80048-TC; 80053-TC; 81001-TC; 83735-TC; 84100-TC; 84443-TC; 85007-TC; 85025-TC; 87086-90; 90779; 94760; J0692; J0696; J2543; J7042; J7512; J7613; Q9967; Z7610

== ENCOUNTER 2019-03-09 17:16 | Inpatient (IN) | payer MEDICARE, MEDICAID ==
--- NOTE | 2019-03-09 17:33 | ED Physician Chart ---
ED Chief Complaint/HPI - Patient Information Date Seen:: 03/09/19 Time Seen:: 17:15 Chief Complaint:: Fever History of Present Illness:: onset x 3 days of fever, cough, and congestion; no report of trauma, H/As, S/T, neck pain, C/P, SOB, Abd. Pain, A/N/V/D/C, chills, or urinary s/s Allergies:: Allergies Allergy/AdvReac Type Severity Reaction Status Date / Time No Known Allergies Allergy Unverified 04/07/17 00:43 Historian:: Patient, EMS Review:: Nurse's Note Reviewed, Old Chart Reviewed, EMS run form Reviewed ED Review of Systems - Review of Systems General/Constitutional: Fever, No chills, No weight loss, Weakness, No diaphoresis, No edema, No loss of appetite Skin: No skin lesions, No rash, No bruising Head: No headache, No light-headedness Eyes: No loss of vision, No pain, No diplopia ENT: No earache, No nasal drainage, No sore throat, No tinnitus Neck: No neck pain, No swelling, No thyromegaly, No stiffness, No mass noted Cardio Vascular: No chest pain, No palpitations, No PND, No orthopnea, No edema Pulmonary: SOB, Cough, No sputum, No wheezing GI: No nausea, No vomiting, No diarrhea, No pain, No melena, No hematochezia, No constipation, No hematemesis G/U: No dysuria, No frequency, No hematuria, No nacturia Musculoskeletal: No bone or joint pain, No back pain, No muscle pain Endocrine: No polyuria, No polydipsia Psychiatric: No prior psych history, No depression, No anxiety, No suicidal ideation, No homicidal ideation, No auditory hallucination, No visual hallucination Hematopoietic: No bruising, No lymphadenopathy Allergic/Immuno: No urticaria, No angioedema Neurological: No syncope, No focal symptoms, Weakness, No paresthesia, No headache, No seizure, No dizziness, Confusion, No vertigo ED Past Medical History - Past Medical History Obtainable: Yes Past Medical History: HTN, CAD, CHF, Asthma/COPD, PUD/GERD, Thyroid disorder, Dementia Family History: Heart disease, HTN Social History: Non Smoker, No Alcohol, No Drug Use, , Care Facility Surgical History: None Psychiatricy History: Dementia Medication: Reviewed Family Medical History - Family Member Mother History Unknown: Yes ED Physical Exam - Physical Examination General/Constitutional: Awake, Well-developed, well-nourished, Alert, No distress, GCS 15, Non-toxic appearing, Ambulatory Head: Atraumatic Eyes: Lids, conjuctiva normal, PERRL, EOMI Skin: Nl inspection, No rash, No skin lesions, No ecchymosis, Well hydrated, No lymphadenopathy ENMT: External ears, nose nl, TM canals nl, Nasal exam nl, Lips, teeth, gums nl , Oropharynx nl, Tonsils nl Neck: Nontender, Full ROM w/o pain, No JVD, No nuchal rigidity, No bruit, No mass, No stridor Other Neck comments:: supple; no meningeal signs Respiratory: Nl effort/Exclusion Other Respiratory comments:: Lungs: = Rales and Rhonchi Cardio Vascular: RRR, No murmur, gallop, rubs, NL S1 S2, Carotid/Femoral/Distal pulses equal bilaterally GI: No tenderness/rebounding/guarding, No organomegaly, No hernia, Normal BS's, Nondistended, No mass/bruits, No McBurney tenderness Other GI comments:: no pulsatile masses : No CVA tenderness Extremities: No tenderness or effusion, Full ROM, normal strength in all extremities, No edema, Normal digits & nails Neuro/Psych: Alert/oriented, DTR's symmetric, Normal sensory exam, Normal motor strength, Judgement/insight normal, Mood normal, Normal gait, No focal deficits Misc: Normal back, No paraspinal tenderness ED Labs/Radiology/EKG Results - Lab Results Comments:: Reviewed - Radiology Results Comments:: COPD; CM; + Patchy Infiltrates - EKG Interpretations EKG Time:: 17:38 Rate & Rhythm: 90; NSR Comments:: non-specific st-t changes ED Septic Shock - . Is Septic Shock (SBP<90, OR Lactate>4 mmol\L) present?: No ED Reassessment (Disposition) - Reassessment Reassessment Condition:: Improved - Diagnosis Diagnosis:: Fever; Cough; Congestion; Pneumonia; Dehydration; Anemia; Leukocytosis; Sepsis - Aftercare/Follow up Instructions Aftercare/Follow-Up Instructions:: Counseled pt regarding lab results/diagnosis & need follow up, Refer to Discharge Instructions - Patient Disposition Discharge/Transfer:: Acute Care w/in this hosp Accepting Physician:: Dr. Chris Time Called:: 1839 Time Responded:: 18:40 Admitted to:: Med/Surg Spoke to:: Dr. Chris Admitting Medical Physician:: Dr. Chris Condition at Disposition:: Stable, Improved
[2019-03-09] MEDS ORDERED: Levofloxacin 500mg/100mL 500 MG/100 ML BAG IV ONE ×2 (18:10→18:27)
[2019-03-09 18:18] LABS: HEMOGLOBIN 11.4 gm/dL (12-16); MEAN CELL VOLUME 96.9 fl (80-99); MEAN CORPUSCULAR HEMOGLOBIN 31.6 pg (27.0-31.0); MEAN CORPUSCULAR HGB CONC 32.6 pg (28.0-36.0); MEAN PLATELET VOLUME 7.7 fl; PLATELET COUNT 299 Th/cmm (150-400); RED BLOOD COUNT 3.62 Mil/cmm (3.80-5.80); RED CELL DISTRIBUTION WIDTH 13.3 % (11.5-20.0)
[2019-03-09 18:20] LABS: WHITE BLOOD COUNT 23.6 Th/cmm (4.8-10.8)
[2019-03-09 18:24] LABS: INR 1.19 (0.5-1.4); PROTHROMBIN TIME (TEST) 12.3 SECONDS (9.5-11.5)
[2019-03-09 18:28] LABS: ALB/GLOB RATIO 0.8 (1.0-1.8); ALBUMIN 3.3 gm/dL (4.2-5.5); ALKALINE PHOSPHATASE 61 U/L (34-104); BILIRUBIN,TOTAL 0.5 mg/dL (0.3-1.0); BUN - UREA NITROGEN 35 mg/dL (7-25); CALCIUM SERUM 9.4 mg/dL (8.6-10.3); CARBON DIOXIDE 29.2 mEq/L (21.0-31.0); CHLORIDE 99 mEq/L (98-107); CREATININE - SERUM 0.8 mg/dL (0.7-1.3); CREATININE KINASE 59 U/L (30-223); GLUCOSE 114 mg/dL (70-105); POTASSIUM SERUM 4.2 mEq/L (3.5-5.1); SGOT 11 U/L (13-39); SGPT/ALT 8 U/L (7-52); SODIUM SERUM 137 mEq/L (136-145); TOTAL PROTEIN,SERUM 7.4 gm/dL (6.0-8.3)
[2019-03-09 18:32] LABS: BAND NEUTROPHILE 9 % (0-10); LYMPHOCYTE 5 % (20-50); MONOCYTE 5 % (2-10); NEUTROPHILS 81 % (40-80)
[2019-03-09] MEDS ORDERED: Magnesium Hydroxide (MOM) 30 mL UDC PO PRN (19:04)
[2019-03-09] MEDS ORDERED: guaiFENesin 200 MG/10 ML UDC PO PRN (19:06)
--- NOTE | 2019-03-09 20:05 | History & Physical ---
ADMIT DATE: 03/09/2019 CHIEF COMPLAINT: Fever, congestion. HISTORY OF PRESENT ILLNESS: This is an 83-year-old male with history of hypertension, CAD, CHF, dementia, cerebral palsy, COPD, admitted from nursing facility secondary to fever and congestion. Initial x-ray showed infiltrates. White count was also elevated to 23,000 in the ER. The patient is a poor historian. PAST MEDICAL HISTORY: As mentioned in history present illness. PAST SURGICAL HISTORY: Unable to obtain from the patient. ALLERGIES: No known drug allergies. MEDICATIONS: Tylenol, Depakote, Lasix, albuterol, Atrovent. FAMILY HISTORY: Noncontributory. SOCIAL HISTORY: The patient is requiring 24-hour total care. REVIEW OF SYSTEMS: This is limited secondary to the patient's current mental state. We will try to obtain more detailed review of systems at a later date by family members as well as the staff from [facility], ____. PHYSICAL EXAMINATION: VITAL SIGNS: Blood pressure 103/56, respirations 18, pulse 89, temperature 99.6. GENERAL: Elderly male, appears stated age. NECK: Supple. No mass. LUNGS: Equal breath sounds, few rhonchi. HEART: Regular rate and rhythm with systolic ejection murmur. ABDOMEN: Soft, globular. EXTREMITIES: Positive excoriations and atrophy contractures. NEUROLOGIC: Limited. LABORATORY DATA: WBC 23, hemoglobin 11, platelets ____, BUN 30, bicarbonate ____, creatinine 0.8, glucose 114, albumin 3.3. ASSESSMENT AND PLAN: Fever, pneumonia, leukocytosis, sepsis, anemia, renal insufficiency, dementia, hypertension, coronary artery disease, history of congestive heart failure. Continue the patient also on bronchodilator treatments, the IV antibiotic. We will start the patient on vancomycin as well as Zosyn. We will send for sputum Gram stain, C and S as well as blood culture. We will admit the patient to telemetry. We will follow the patient closely. JOB# [id number]
[2019-03-09] MEDS: D5-0.45NS 1,000 ML IV SCH (22:11)
[2019-03-09 22:44] VITALS: BP 121/54
[2019-03-10] MEDS: Diltiazem 30 mg Tab PO SCH ×6 (02:39→22:13)
[2019-03-10] MEDS: Levothyroxine 0.1 Mg Tab PO SCH (07:00)
--- NOTE | 2019-03-10 08:37 | Diagnostic Imaging Report ---
CHEST X-RAY: AP view INDICATION: pain COMPARISON: Chest x-ray 11/15/[address] chest on 11/15/2018 FINDINGS: Left chest wall pacemaker is stable. Increased interstitial lung markings are again noted. Bibasal pleural thickening is noted. Cardiomegaly is noted atherosclerosis. Degenerative changes of the spine are noted. IMPRESSION: Increased interstitial lung markings sella which may be chronic, however, acute interstitial infiltrates cannot be excluded. Please correlate clinically. Cardiomegaly and atherosclerotic vascular disease. Pacemaker.
[2019-03-10] MEDS: Aspirin 81mg Chewable Tab PO SCH ×2 (09:18→09:22)
[2019-03-10] MEDS ORDERED: Diltiazem 5 mg/mL 5mL Vial IVP PRN (11:50)
--- NOTE | 2019-03-10 11:50 | Internal Medicine Prog Note ---
Internal Medicine Subjective - Subjective Patient seen and examined:: with staff, chart reviewed Patient is:: awake, non-verbal, non-interactive, eyes closed, in bed, agitated, confused Patient Complaints of:: congestion, SOB, unable to sleep Per staff patient has:: no adverse event, no episodes of fall, poor appetite, poor oral intake, gagging, combative, noncompliant, refusing care Internal Medicine Objective - Results Result Diagrams: 03/09/19 18:10 03/09/19 18:10 Recent Labs: Laboratory Last Values WBC 23.6 Th/cmm (4.8-10.8) H* D 03/09/19 18:10 RBC 3.62 Mil/cmm (3.80-5.80) L 03/09/19 18:10 Hgb 11.4 gm/dL (12-16) L 03/09/19 18:10 Hct 35.0 % (41.0-60) L 03/09/19 18:10 MCV 96.9 fl (80-99) 03/09/19 18:10 MCH 31.6 pg (27.0-31.0) H 03/09/19 18:10 MCHC Differential 32.6 pg (28.0-36.0) 03/09/19 18:10 RDW 13.3 % (11.5-20.0) 03/09/19 18:10 Plt Count 299 Th/cmm (150-400) 03/09/19 18:10 MPV 7.7 fl 03/09/19 18:10 Add Manual Diff YES 03/09/19 18:10 Band Neutrophils % 9 % (0-10) 03/09/19 18:10 Neutrophils (Manual) 81 % (40-80) H 03/09/19 18:10 Lymphocytes 5 % (20-50) L 03/09/19 18:10 Monocytes 5 % (2-10) 03/09/19 18:10 PT 12.3 SECONDS (9.5-11.5) H 03/09/19 18:10 INR 1.19 (0.5-1.4) 03/09/19 18:10 PTT (Actin FS) 29.7 SECONDS (26.0-38.0) 03/09/19 18:10 Sodium 137 mEq/L (136-145) 03/09/19 18:10 Potassium 4.2 mEq/L (3.5-5.1) 03/09/19 18:10 Chloride 99 mEq/L (98-107) 03/09/19 18:10 Carbon Dioxide 29.2 mEq/L (21.0-31.0) 03/09/19 18:10 Anion Gap 13.0 (7.0-16.0) 03/09/19 18:10 BUN 35 mg/dL (7-25) H 03/09/19 18:10 Creatinine 0.8 mg/dL (0.7-1.3) 03/09/19 18:10 Est GFR ( Amer) TNP 03/09/19 18:10 Est GFR (Non-Af Amer) TNP 03/09/19 18:10 BUN/Creatinine Ratio 43.8 03/09/19 18:10 Glucose 114 mg/dL (70-105) H 03/09/19 18:10 POC Glucose 127 MG/DL (70 - 105) H 03/09/19 22:51 Whole Bld Lactic Acid 1.01 mmol/L (0.60-1.99) 03/09/19 18:10 Calcium 9.4 mg/dL (8.6-10.3) 03/09/19 18:10 Total Bilirubin 0.5 mg/dL (0.3-1.0) 03/09/19 18:10 AST 11 U/L (13-39) L 03/09/19 18:10 ALT 8 U/L (7-52) 03/09/19 18:10 Alkaline Phosphatase 61 U/L (34-104) 03/09/19 18:10 Creatine Kinase 59 U/L (30-223) 03/09/19 18:10 Total Protein 7.4 gm/dL (6.0-8.3) 03/09/19 18:10 Albumin 3.3 gm/dL (4.2-5.5) L 03/09/19 18:10 Globulin 4.1 gm/dL 03/09/19 18:10 Albumin/Globulin Ratio 0.8 (1.0-1.8) L 03/09/19 18:10 - Physical Exam Vitals and I&O: Vital Signs Temp 98.7 F 03/10/19 08:00 Pulse 140 03/10/19 11:27 Resp 20 05/09/19 08:00 BP 105/51 03/10/19 08:00 Pulse Ox 93 03/10/19 08:00 Intake & Output 03/09/19 03/10/19 03/10/19 18:59 06:59 18:59 Intake Total 300 Balance 300 Weight (lbs) 58.967 kg 55.792 kg Intake: Intake, IV Amount 300 Levofloxacin 500mg/100mL 100 500 mg In 100 ml @ 100 mls/hr IV [facility]1 [facility] Rx#: [id number] Piperacillin Sodium/ 100 Tazobact 4.5 gm In Sodium Chloride 0.9% 100 ml @ 100 mls/hr IV Q8HR [facility] Rx #:[id number] Other: # Voids 2 # Bowel Movements 0 Weight Source Estimated Bedscale Active Medications: Current Medications Acetaminophen (Tylenol) 650 mg PO Q4H PRN PRN Reason: Pain Or Fever above 101 Stop: 05/08/19 19:05 Albuterol Sulfate (Albuterol 2.5mg/3ml Neb Ud) 2.5 mg HHN QIDRT [facility] Stop: 05/09/19 06:59 Aspirin (Aspirin Chewable) 81 mg PO DAILY [facility] Stop: 05/09/19 08:59 Last Admin: 03/10/19 09:22 Dose: Not Given Calcium/Vitamin D (Oscal W/Vitamin D) 1 tab PO QPM [facility] Stop: 05/09/19 16:59 Diltiazem HCl (Cardizem) 30 mg PO TID [facility] Stop: 05/09/19 13:59 Divalproex Sodium (Depakote Sprinkle) 250 mg PO Q12HR [facility]; Protocol Stop: 05/08/19 20:59 Last Admin: 03/10/19 09:24 Dose: Not Given Docusate Sodium (Colace) 100 mg PO DAILY [facility] Stop: 05/09/19 08:59 Last Admin: 03/10/19 09:24 Dose: Not Given Donepezil HCl (Aricept) 10 mg PO HS [facility] Stop: 05/08/19 20:59 Last Admin: 03/09/19 22:09 Dose: 10 mg Guaifenesin (Robitussin) 200 mg PO Q4HR PRN PRN Reason: Cough or Congestion Stop: 05/08/19 19:05 Dextrose/Sodium Chloride (D5-0.45ns) 1,000 mls @ 80 mls/hr IV .[id number] [facility] Stop: 05/08/19 19:14 Last Admin: 03/09/19 22:11 Dose: 80 mls/hr Piperacillin Sod/Tazobactam (Sod 4.5 gm/ Sodium Chloride) 100 mls @ 100 mls/hr IV Q8HR [facility] Stop: 05/08/19 20:59 Last Admin: 03/10/19 04:15 Dose: 100 mls/hr Vancomycin HCl 1.25 gm/ Sodium (Chloride) 250 mls @ 165 mls/hr IV Q24H [facility] Stop: 05/09/19 10:59 Last Admin: 03/10/19 11:25 Dose: 165 mls/hr Ipratropium [place] (Atrovent Neb 0.5mg/2.5ml) 0.5 mg HHN QIDRT [facility] Stop: 05/09/19 06:59 Levothyroxine Sodium (Synthroid) 0.1 mg PO QDAC [facility] Stop: 05/09/19 07:29 Last Admin: 03/10/19 07:00 Dose: Not Given Magnesium Hydroxide (Milk Of Magnesia) 30 ml PO DAILY PRN PRN Reason: Constipation Stop: 05/08/19 19:03 Miscellaneous (Vancomycin Iv Per Pharmacy) 1 ea MC PRN [facility] Stop: 05/08/19 19:14 Vitamin D (Vitamin D) 400 iu PO Q12HR [facility] Stop: 05/08/19 20:59 Last Admin: 03/10/19 09:24 Dose: Not Given Zolpidem Tartrate (Ambien) 10 mg PO HS PRN PRN Reason: Insomnia Stop: 05/08/19 19:05 General: lethargic, demented, bilateral temporal wasting, appears older HEENT: NC/AT, PERRLA Neck: Supple, No JVD Lungs: congested, rales, ronchi Cardiovascular: RRR, Normal S1, Normal S2, with murmur Abdomen: soft, non-tender, thin, positive bowel sound Extremities: excoriation, contracture Neurological: no change - Procedures Procedures: Procedures Procedure Code Date CLOSURE SKIN & SUBCUTANEOUS NEC 86.59 08/21/01 COLONOSCOPY AND BIOPSY 52748 09/04/12 CONTINUED VENTILATOR MGMT 84217 11/14/01 CONTINUOUS INVASIVE MECHANICAL VENTILATION =/>96 CONSEC HRS 96.72 09/15/01 EGD BIOPSY SINGLE/MULTIPLE 35472 04/06/17 EGD DIAGNOSTIC BRUSH WASH 20899 01/29/10 ENDOSC POLYPECTOMY OF LG INTEST 45.42 09/04/12 ESOPHAGOGASTRODUODENOSCOPY [EGD] W/CLOSED BIOPSY 45.16 07/04/14 EXCISION OF STOMACH, ENDO, DIAGN [id number] 04/06/17 INCISION OF [place] 18638 09/15/01 INITIAL INSERT OF TRANS. LEADS INTO VENTRICLE 37.71 09/15/01 INITIAL VENTILATOR MGMT 73084 09/15/01 INSERT EMERGENCY AIRWAY 26467 09/15/01 INSERT ENDOTRACHEAL TUBE 96.04 09/15/01 INSERT HEART PM VENTRICULAR 73080 09/15/01 INSERT SING CHAMB DEV, NOT SPEC RATE RESPONSIVE 37.81 09/15/01 INSERTION OF CHEST TUBE 18803 09/15/01 INTRODUCTION OF SERUM/TOX/VACCINE INTO MUSCLE, PERC APPROACH [id number] 04/06/17 NON-INVASIVE MECHANICAL VENTILATION 93.90 01/29/10 OTHER ENDOSCOPY OF SM INTEST 45.13 01/29/10 OTHER PERM TRACHEOSTOMY 31.29 09/15/01 OTHER PLEURAL INCISION 34.09 09/15/01 RPR S/N/AX/GEN/TRNK2.6-7.5CM 12865 08/21/01 Internal Medicine Assmt/Plan - Assessment Assessment: ASSESSMENT AND PLAN: Fever, pneumonia, leukocytosis, sepsis, anemia, renal insufficiency, dementia, hypertension, coronary artery disease, history of congestive heart failure. poor po intake - Plan Plan: PLAN: Continue the patient also on bronchodilator treatments, the IV antibiotic.iv hydration We will start the patient on vancomycin as well as Zosyn. We will send for sputum Gram stain, C and S as well as blood culture. We will admit the patient to telemetry. We will follow the patient closely.will refer pt to speech
--- NOTE | 2019-03-10 13:24 | General Progress Note ---
Subjective - Review of Systems Service Date: 03/10/19 Subjective: Patient still complained of shortness of breath congestion occasional palpitation Objective - Results Result Diagrams: 03/09/19 18:10 03/09/19 18:10 Recent Labs: Laboratory Last Values WBC 23.6 Th/cmm (4.8-10.8) H* D 03/09/19 18:10 RBC 3.62 Mil/cmm (3.80-5.80) L 03/09/19 18:10 Hgb 11.4 gm/dL (12-16) L 03/09/19 18:10 Hct 35.0 % (41.0-60) L 03/09/19 18:10 MCV 96.9 fl (80-99) 03/09/19 18:10 MCH 31.6 pg (27.0-31.0) H 03/09/19 18:10 MCHC Differential 32.6 pg (28.0-36.0) 03/09/19 18:10 RDW 13.3 % (11.5-20.0) 03/09/19 18:10 Plt Count 299 Th/cmm (150-400) 03/09/19 18:10 MPV 7.7 fl 03/09/19 18:10 Add Manual Diff YES 03/09/19 18:10 Band Neutrophils % 9 % (0-10) 03/09/19 18:10 Neutrophils (Manual) 81 % (40-80) H 03/09/19 18:10 Lymphocytes 5 % (20-50) L 03/09/19 18:10 Monocytes 5 % (2-10) 03/09/19 18:10 PT 12.3 SECONDS (9.5-11.5) H 03/09/19 18:10 INR 1.19 (0.5-1.4) 03/09/19 18:10 PTT (Actin FS) 29.7 SECONDS (26.0-38.0) 03/09/19 18:10 Sodium 137 mEq/L (136-145) 03/09/19 18:10 Potassium 4.2 mEq/L (3.5-5.1) 03/09/19 18:10 Chloride 99 mEq/L (98-107) 03/09/19 18:10 Carbon Dioxide 29.2 mEq/L (21.0-31.0) 03/09/19 18:10 Anion Gap 13.0 (7.0-16.0) 03/09/19 18:10 BUN 35 mg/dL (7-25) H 03/09/19 18:10 Creatinine 0.8 mg/dL (0.7-1.3) 03/09/19 18:10 Est GFR ( Amer) TNP 03/09/19 18:10 Est GFR (Non-Af Amer) TNP 03/09/19 18:10 BUN/Creatinine Ratio 43.8 03/09/19 18:10 Glucose 114 mg/dL (70-105) H 03/09/19 18:10 POC Glucose 127 MG/DL (70 - 105) H 03/09/19 22:51 Whole Bld Lactic Acid 1.01 mmol/L (0.60-1.99) 03/09/19 18:10 Calcium 9.4 mg/dL (8.6-10.3) 03/09/19 18:10 Total Bilirubin 0.5 mg/dL (0.3-1.0) 03/09/19 18:10 AST 11 U/L (13-39) L 03/09/19 18:10 ALT 8 U/L (7-52) 03/09/19 18:10 Alkaline Phosphatase 61 U/L (34-104) 03/09/19 18:10 Creatine Kinase 59 U/L (30-223) 03/09/19 18:10 Total Protein 7.4 gm/dL (6.0-8.3) 03/09/19 18:10 Albumin 3.3 gm/dL (4.2-5.5) L 03/09/19 18:10 Globulin 4.1 gm/dL 03/09/19 18:10 Albumin/Globulin Ratio 0.8 (1.0-1.8) L 03/09/19 18:10 - Physical Exam Vitals and I&O: Vital Signs Temp 98.6 F 03/10/19 12:00 Pulse 142 03/10/19 12:16 Resp 20 03/10/19 12:00 BP 115/66 03/10/19 12:00 Pulse Ox 91 03/10/19 12:00 Intake & Output 03/09/19 03/10/19 03/10/19 18:59 06:59 18:59 Intake Total 400 Balance 400 Weight (lbs) 58.967 kg 55.792 kg Intake: Intake, IV Amount 400 Levofloxacin 500mg/100mL 100 500 mg In 100 ml @ 100 mls/hr IV X1 ONE Rx#: [id number] Piperacillin Sodium/ 200 Tazobact 4.5 gm In Sodium Chloride 0.9% 100 ml @ 100 mls/hr IV Q8HR [facility] Rx #:[id number] Other: # Voids 2 # Bowel Movements 0 Weight Source Estimated Bedscale Active Medications: Current Medications Acetaminophen (Tylenol) 650 mg PO Q4H PRN PRN Reason: Pain Or Fever above 101 Stop: 05/08/19 19:05 Albuterol Sulfate (Albuterol 2.5mg/3ml Neb Ud) 2.5 mg HHN QIDRT [facility] Stop: 05/09/19 06:59 Aspirin (Aspirin Chewable) 81 mg PO DAILY [facility] Stop: 05/09/19 08:59 Last Admin: 03/10/19 09:22 Dose: Not Given Calcium/Vitamin D (Oscal W/Vitamin D) 1 tab PO QPM [facility] Stop: 05/09/19 16:59 Diltiazem HCl (Cardizem) 30 mg PO TID [facility] Stop: 05/09/19 13:59 Diltiazem HCl (Cardizem) 20 mg IVP Q4H PRN PRN Reason: HR Greater than 130 per min Stop: 05/09/19 11:49 Last Admin: 03/10/19 12:16 Dose: 20 mg Divalproex Sodium (Depakote Sprinkle) 250 mg PO Q12HR [facility]; Protocol Stop: 05/08/19 20:59 Last Admin: 03/10/19 09:24 Dose: Not Given Docusate Sodium (Colace) 100 mg PO DAILY [facility] Stop: 05/09/19 08:59 Last Admin: 03/10/19 09:24 Dose: Not Given Donepezil HCl (Aricept) 10 mg PO HS [facility] Stop: 05/08/19 20:59 Last Admin: 03/09/19 22:09 Dose: 10 mg Guaifenesin (Robitussin) 200 mg PO Q4HR PRN PRN Reason: Cough or Congestion Stop: 05/08/19 19:05 Dextrose/Sodium Chloride (D5-0.45ns) 1,000 mls @ 80 mls/hr IV .[id number] [facility] Stop: 05/08/19 19:14 Last Admin: 03/09/19 22:11 Dose: 80 mls/hr Piperacillin Sod/Tazobactam (Sod 4.5 gm/ Sodium Chloride) 100 mls @ 100 mls/hr IV Q8HR [facility] Stop: 05/08/19 20:59 Last Admin: 03/10/19 12:19 Dose: 100 mls/hr Vancomycin HCl 1.25 gm/ Sodium (Chloride) 250 mls @ 165 mls/hr IV Q24H [facility] Stop: 05/09/19 10:59 Last Admin: 03/10/19 11:25 Dose: 165 mls/hr Ipratropium [place] (Atrovent Neb 0.5mg/2.5ml) 0.5 mg HHN QIDRT [facility] Stop: 05/09/19 06:59 Levothyroxine Sodium (Synthroid) 0.1 mg PO QDAC [facility] Stop: 05/09/19 07:29 Last Admin: 03/10/19 07:00 Dose: Not Given Magnesium Hydroxide (Milk Of Magnesia) 30 ml PO DAILY PRN PRN Reason: Constipation Stop: 05/08/19 19:03 Miscellaneous (Vancomycin Iv Per Pharmacy) 1 ea MC PRN [facility] Stop: 05/08/19 19:14 Vitamin D (Vitamin D) 400 iu PO Q12HR [facility] Stop: 05/08/19 20:59 Last Admin: 03/10/19 09:24 Dose: Not Given Zolpidem Tartrate (Ambien) 10 mg PO HS PRN PRN Reason: Insomnia Stop: 05/08/19 19:05 General: No acute distress HEENT: Mucous membr. moist/pink Neck: Supple, JVD, +2 carotid pulse wo bruit (flat) Cardiovascular: Regular rate, Normal S1, Normal S2, Systolic murmurs, Other Lungs: Clear to auscultation (tachycardia), Other (wheezing and rhonchi) Abdomen: Bowel sounds, Soft, Other (no organomegaly) Extremities: Edema (no pedal edema) Neurological: Strength at 5/5 X4 ext, Normal tone, Cranial nerves 3-12 NL, Reflexes 2+ - Procedures Procedures: Procedures Procedure Code Date CLOSURE SKIN & SUBCUTANEOUS NEC 86.59 08/21/01 COLONOSCOPY AND BIOPSY 94017 09/04/12 CONTINUED VENTILATOR MGMT 51007 09/15/01 CONTINUOUS INVASIVE MECHANICAL VENTILATION =/>96 CONSEC HRS 96.72 09/15/01 EGD BIOPSY SINGLE/MULTIPLE 31589 04/06/17 EGD DIAGNOSTIC BRUSH WASH 95076 01/29/10 ENDOSC POLYPECTOMY OF LG INTEST 45.42 09/04/12 ESOPHAGOGASTRODUODENOSCOPY [EGD] W/CLOSED BIOPSY 45.16 07/04/14 EXCISION OF STOMACH, ENDO, DIAGN [id number] 04/06/17 INCISION OF WINDPIPE 41677 09/15/01 INITIAL INSERT OF TRANS. LEADS INTO VENTRICLE 37.71 09/15/01 INITIAL VENTILATOR MGMT 39866 09/15/01 INSERT EMERGENCY AIRWAY 30290 09/15/01 INSERT ENDOTRACHEAL TUBE 96.04 09/15/01 INSERT HEART PM VENTRICULAR 45866 09/15/01 INSERT SING CHAMB DEV, NOT SPEC RATE RESPONSIVE 37.81 09/15/01 INSERTION OF CHEST TUBE 72219 09/15/01 INTRODUCTION OF SERUM/TOX/VACCINE INTO MUSCLE, PERC APPROACH [id number] 04/06/17 NON-INVASIVE MECHANICAL VENTILATION 93.90 01/29/10 OTHER ENDOSCOPY OF SM INTEST 45.13 01/29/10 OTHER PERM TRACHEOSTOMY 31.29 09/15/01 OTHER PLEURAL INCISION 34.09 09/15/01 RPR S/N/AX/GEN/TRNK2.6-7.5CM 10046 08/21/01 Assessment/Plan - Assessment Assessment: Supraventricular tachycardia Sepsis Protein calorie malnutrition Dementia Hypertension Congestive heart failure chronic Stable angina COPD Cerebral palsy - Plan Plan: Continue IV antibiotics we'll start patient on Cardizem 20 mg IV push every 4 hours when necessary to control heart rate as patient ECHOCARDIOGRAM
[2019-03-10] MEDS: Calcium Carb/Vit D 500 mg/200 U Tab PO SCH (17:58)
[2019-03-10] MEDS: D5-0.45NS 1,000 ML IV SCH (22:15)
[2019-03-11 06:50] LABS: HEMOGLOBIN 10.1 gm/dL (12-16); MEAN CELL VOLUME 95.7 fl (80-99); MEAN CORPUSCULAR HEMOGLOBIN 32.2 pg (27.0-31.0); MEAN CORPUSCULAR HGB CONC 33.7 pg (28.0-36.0); MEAN PLATELET VOLUME 7.5 fl; PLATELET COUNT 315 Th/cmm (150-400); RED BLOOD COUNT 3.14 Mil/cmm (3.80-5.80); RED CELL DISTRIBUTION WIDTH 13.1 % (11.5-20.0)
[2019-03-11 06:56] LABS: ALB/GLOB RATIO 0.8 (1.0-1.8); ALBUMIN 2.7 gm/dL (4.2-5.5); ALKALINE PHOSPHATASE 47 U/L (34-104); ANION GAP 10.4 (7.0-16.0); BILIRUBIN,TOTAL 0.4 mg/dL (0.3-1.0); BUN - UREA NITROGEN 21 mg/dL (7-25); CALCIUM SERUM 8.7 mg/dL (8.6-10.3); CHLORIDE 105 mEq/L (98-107); CREATININE - SERUM 0.8 mg/dL (0.7-1.3); GLUCOSE 99 mg/dL (70-105); POTASSIUM SERUM 3.4 mEq/L (3.5-5.1); SGOT 8 U/L (13-39); SGPT/ALT 6 U/L (7-52); SODIUM SERUM 142 mEq/L (136-145); TOTAL PROTEIN,SERUM 6.1 gm/dL (6.0-8.3)
[2019-03-11] MEDS: Levothyroxine 0.1 Mg Tab PO SCH (06:58)
[2019-03-11 07:05] LABS: WHITE BLOOD COUNT 15.9 Th/cmm (4.8-10.8)
[2019-03-11] MEDS: Ipratropium Neb 0.5 mg/2.5 mL UD HHN SCH ×4 (07:52→19:03)
[2019-03-11] MEDS: Albuterol Nebulizer 2.5mg/3mL HHN SCH ×4 (07:53→18:59)
--- NOTE | 2019-03-11 08:12 | Diagnostic Imaging Report ---
Exam: Portable chest x-ray HISTORY: Pneumonia COMPARISON: 03/10/2019 Findings: Portable positioning chest was reviewed. The study demonstrates a new onset of the left-sided pneumonia and effusion. NG tube in the stomach. Left-sided pacemaker is noted. There is evidence of pleural thickening on the left side. COPD changes noted. The aortic arch calcified. Mediastinal structures midline, the heart is not enlarged. IMPRESSION: Left-sided pneumonia and effusion Right basilar atelectasis Mild congestion cannot be excluded. Follow-up exam is recommended.
[2019-03-11 08:15] LABS: BASOPHIL 0 % (0-3); EOSINOPHIL 0 % (0-5); LYMPHOCYTE 8 % (20-50); MONOCYTE 8 % (2-10); NEUTROPHILS 84 % (40-80); PLATELET ESTIMATE ADEQUATE (NORMAL)
--- NOTE | 2019-03-11 08:18 | Diagnostic Imaging Report ---
Exam: Portable chest x-ray HISTORY: NG tube placement. Findings: Portable examination of the chest at 1708 demonstrates NG tube in the stomach.
--- NOTE | 2019-03-11 08:21 | Diagnostic Imaging Report ---
Exam: CT examination of brain. HISTORY: ALOC. Total DLP equals 660 CTDI equals 51.4 Findings: Multiple views of the section of the brain were obtained from the base of skull to the vertex without the administration of contrast material, no prior studies available comparison. The study is limited due to severe motion artifacts. There is evidence of prominence of cerebral sulci and ventricles consistent with atrophy. Old left basal ganglia lacunar infarcts noted. There is no evidence of hemorrhage midline shift or edema. The visualized cerebellum is intact. The bony calvarium is normal. The sinuses are well aerated. IMPRESSION : Limited examination due to motion artifacts Diffuse white matter disease, with atrophy. Old left basal ganglia infarct.
[2019-03-11] MEDS: Diltiazem 30 mg Tab PO SCH ×2 (08:37→13:57)
[2019-03-11] MEDS: Aspirin 81mg Chewable Tab PO SCH (08:37)
[2019-03-11] MEDS: D5-0.45NS 1,000 ML IV SCH (09:58)
[2019-03-11] MEDS ORDERED: Potassium Chloride 20 mEq ER Tab PO ONE (12:16)
--- NOTE | 2019-03-11 12:19 | Internal Medicine Prog Note ---
Internal Medicine Subjective - Subjective Patient seen and examined:: with staff, chart reviewed Patient is:: awake, non-verbal, non-interactive, eyes closed, in bed, agitated, confused Patient Complaints of:: congestion, SOB, unable to sleep Per staff patient has:: no adverse event, no episodes of fall, poor appetite, poor oral intake, gagging, combative, noncompliant, refusing care Internal Medicine Objective - Results Result Diagrams: 03/11/19 06:22 03/11/19 06:22 Recent Labs: Laboratory Last Values WBC 15.9 Th/cmm (4.8-10.8) H 03/11/19 06:22 RBC 3.14 Mil/cmm (3.80-5.80) L 03/11/19 06:22 Hgb 10.1 gm/dL (12-16) L 03/11/19 06:22 Hct 30.0 % (41.0-60) L 03/11/19 06:22 MCV 95.7 fl (80-99) 03/11/19 06:22 MCH 32.2 pg (27.0-31.0) H 03/11/19 06:22 MCHC Differential 33.7 pg (28.0-36.0) 03/11/19 06:22 RDW 13.1 % (11.5-20.0) 03/11/19 06:22 Plt Count 315 Th/cmm (150-400) 03/11/19 06:22 MPV 7.5 fl 03/11/19 06:22 Add Manual Diff YES 03/11/19 06:22 Neutrophils % FINANCIAL REPORTING SPECIALIST 03/11/19 06:22 Band Neutrophils % 9 % (0-10) 03/09/19 18:10 Lymphocytes % FINANCIAL REPORTING SPECIALIST 03/11/19 06:22 Monocytes % FINANCIAL REPORTING SPECIALIST 03/11/19 06:22 Eosinophils % FINANCIAL REPORTING SPECIALIST 03/11/19 06:22 Basophils % FINANCIAL REPORTING SPECIALIST 03/11/19 06:22 Neutrophils (Manual) 84 % (40-80) H 03/11/19 06:22 Lymphocytes 8 % (20-50) L 03/11/19 06:22 Monocytes 8 % (2-10) 03/11/19 06:22 Eosinophils 0 % (0-5) 03/11/19 06:22 Basophils 0 % (0-3) 03/11/19 06:22 Platelet Estimate ADEQUATE (NORMAL) 03/11/19 06:22 PT 12.3 SECONDS (9.5-11.5) H 03/09/19 18:10 INR 1.19 (0.5-1.4) 03/09/19 18:10 PTT (Actin FS) 29.7 SECONDS (26.0-38.0) 03/09/19 18:10 Sodium 142 mEq/L (136-145) 03/11/19 06:22 Potassium 3.4 mEq/L (3.5-5.1) L 03/11/19 06:22 Chloride 105 mEq/L (98-107) 03/11/19 06:22 Carbon Dioxide 30.0 mEq/L (21.0-31.0) 03/11/19 06:22 Anion Gap 10.4 (7.0-16.0) 03/11/19 06:22 BUN 21 mg/dL (7-25) 03/11/19 06:22 Creatinine 0.8 mg/dL (0.7-1.3) 03/11/19 06:22 Est GFR ( Amer) TNP 03/11/19 06:22 Est GFR (Non-Af Amer) TNP 03/11/19 06:22 BUN/Creatinine Ratio 26.3 03/11/19 06:22 Glucose 99 mg/dL (70-105) 03/11/19 06:22 POC Glucose 127 MG/DL (70 - 105) H 03/09/19 22:51 Whole Bld Lactic Acid 1.01 mmol/L (0.60-1.99) 03/09/19 18:10 Calcium 8.7 mg/dL (8.6-10.3) 03/11/19 06:22 Total Bilirubin 0.4 mg/dL (0.3-1.0) 03/11/19 06:22 AST 8 U/L (13-39) L 03/11/19 06:22 ALT 6 U/L (7-52) L 03/11/19 06:22 Alkaline Phosphatase 47 U/L (34-104) 03/11/19 06:22 Ammonia 43 umol/L (16-53) 03/11/19 06:22 Creatine Kinase 59 U/L (30-223) 03/09/19 18:10 B-Natriuretic Peptide 296.0 pg/mL (5.0-100.0) H 03/11/19 06:22 Total Protein 6.1 gm/dL (6.0-8.3) 03/11/19 06:22 Albumin 2.7 gm/dL (4.2-5.5) L 03/11/19 06:22 Globulin 3.4 gm/dL 03/11/19 06:22 Albumin/Globulin Ratio 0.8 (1.0-1.8) L 03/11/19 06:22 TSH 1.25 uIU/ml (0.34-5.60) 03/11/19 06:22 - Physical Exam Vitals and I&O: Vital Signs Temp 97.5 F 03/11/19 11:00 Pulse 71 03/11/19 11:00 Resp 18 03/11/19 11:00 BP 110/58 03/11/19 11:00 Pulse Ox 95 03/11/19 10:44 Intake & Output 03/10/19 03/11/19 03/11/19 18:59 06:59 18:59 Intake Total 350 1300 937.333 Balance 350 1300 937.333 Weight (lbs) 55.792 kg 55.792 kg Intake: Intake, IV Amount 350 1100 937.333 D5-0.45NS 1,000 ml @ 80 1000 937.333 mls/hr IV .[id number] [facility] Rx #:[id number] Piperacillin Sodium/ 100 100 Tazobact 4.5 gm In Sodium Chloride 0.9% 100 ml @ 100 mls/hr IV Q8HR [facility] Rx #:[id number] Vancomycin HCl 1.25 gm In 250 Sodium Chloride 0.9% 250 ml @ 165 mls/hr IV Q24H [facility] Rx#:[id number] Tube Feeding 200 Other: Weight Source Bedscale Bedscale Active Medications: Current Medications Acetaminophen (Tylenol) 650 mg PO Q4H PRN PRN Reason: Pain Or Fever above 101 Stop: 05/08/19 19:05 Albuterol Sulfate (Albuterol 2.5mg/3ml Neb Ud) 2.5 mg HHN QIDRT [facility] Stop: 05/09/19 06:59 Last Admin: 03/11/19 10:43 Dose: 2.5 mg Aspirin (Aspirin Chewable) 81 mg PO DAILY [facility] Stop: 05/09/19 08:59 Last Admin: 03/11/19 08:37 Dose: 81 mg Calcium/Vitamin D (Oscal W/Vitamin D) 1 tab PO QPM [facility] Stop: 05/09/19 16:59 Last Admin: 03/10/19 17:58 Dose: 1 tab Diltiazem HCl (Cardizem) 30 mg PO TID [facility] Stop: 05/09/19 13:59 Last Admin: 03/11/19 08:37 Dose: 30 mg Diltiazem HCl (Cardizem) 20 mg IVP Q4H PRN PRN Reason: HR Greater than 130 per min Stop: 05/09/19 11:49 Last Admin: 03/10/19 12:16 Dose: 20 mg Divalproex Sodium (Depakote Sprinkle) 250 mg PO Q12HR [facility]; Protocol Stop: 05/08/19 20:59 Last Admin: 03/11/19 08:37 Dose: 250 mg Docusate Sodium (Colace) 100 mg PO DAILY [facility] Stop: 05/09/19 08:59 Last Admin: 03/11/19 08:37 Dose: 100 mg Donepezil HCl (Aricept) 10 mg PO HS [facility] Stop: 05/08/19 20:59 Last Admin: 03/10/19 22:10 Dose: 10 mg Guaifenesin (Robitussin) 200 mg PO Q4HR PRN PRN Reason: Cough or Congestion Stop: 05/08/19 19:05 Dextrose/Sodium Chloride (D5-0.45ns) 1,000 mls @ 80 mls/hr IV .[id number] [facility] Stop: 05/08/19 19:14 Last Admin: 03/11/19 09:58 Dose: 80 mls/hr Piperacillin Sod/Tazobactam (Sod 4.5 gm/ Sodium Chloride) 100 mls @ 100 mls/hr IV Q8HR [facility] Stop: 05/08/19 20:59 Last Admin: 03/11/19 04:45 Dose: 100 mls/hr Vancomycin HCl 1.25 gm/ Sodium (Chloride) 250 mls @ 165 mls/hr IV Q24H [facility] Stop: 05/09/19 10:59 Last Admin: 03/11/19 09:59 Dose: 165 mls/hr Ipratropium [place] (Atrovent Neb 0.5mg/2.5ml) 0.5 mg HHN QIDRT [facility] Stop: 05/09/19 06:59 Last Admin: 03/11/19 10:43 Dose: 0.5 mg Levothyroxine Sodium (Synthroid) 0.1 mg PO QDAC [facility] Stop: 05/09/19 07:29 Last Admin: 03/11/19 06:58 Dose: 0.1 mg Magnesium Hydroxide (Milk Of Magnesia) 30 ml PO DAILY PRN PRN Reason: Constipation Stop: 05/08/19 19:03 Miscellaneous (Vancomycin Iv Per Pharmacy) 1 ea MC PRN [facility] Stop: 05/08/19 19:14 Potassium Chloride (Klor-Con) 20 meq PO X1 [facility] Stop: 03/11/19 12:17 Vitamin D (Vitamin D) 400 iu PO Q12HR [facility] Stop: 05/08/19 20:59 Last Admin: 03/11/19 08:37 Dose: 400 iu Zolpidem Tartrate (Ambien) 10 mg PO HS PRN PRN Reason: Insomnia Stop: 05/08/19 19:05 General: lethargic, demented, bilateral temporal wasting, appears older HEENT: NC/AT, PERRLA Neck: Supple, No JVD Lungs: congested, rales, ronchi Cardiovascular: RRR, Normal S1, Normal S2, with murmur Abdomen: soft, non-tender, thin, positive bowel sound Extremities: excoriation, contracture Neurological: no change - Procedures Procedures: Procedures Procedure Code Date CLOSURE SKIN & SUBCUTANEOUS NEC 86.59 08/21/01 COLONOSCOPY AND BIOPSY 92037 09/04/12 CONTINUED VENTILATOR MGMT 96681 09/15/01 CONTINUOUS INVASIVE MECHANICAL VENTILATION =/>96 CONSEC HRS 96.72 09/15/01 EGD BIOPSY SINGLE/MULTIPLE 98957 04/06/17 EGD DIAGNOSTIC BRUSH WASH 52926 01/29/10 ENDOSC POLYPECTOMY OF LG INTEST 45.42 09/04/12 ESOPHAGOGASTRODUODENOSCOPY [EGD] W/CLOSED BIOPSY 45.16 07/04/14 EXCISION OF STOMACH, ENDO, DIAGN [id number] 04/06/17 INCISION OF [place]DPIPE 88736 09/15/01 INITIAL INSERT OF TRANS. LEADS INTO VENTRICLE 37.71 09/15/01 INITIAL VENTILATOR MGMT 08724 09/15/01 INSERT EMERGENCY AIRWAY 38315 09/15/01 INSERT ENDOTRACHEAL TUBE 96.04 09/15/01 INSERT HEART PM VENTRICULAR 51908 09/15/01 INSERT SING CHAMB DEV, NOT SPEC RATE RESPONSIVE 37.81 09/15/01 INSERTION OF CHEST TUBE 72049 09/15/01 INTRODUCTION OF SERUM/TOX/VACCINE INTO MUSCLE, PERC APPROACH [id number] 04/06/17 NON-INVASIVE MECHANICAL VENTILATION 93.90 01/29/10 OTHER ENDOSCOPY OF SM INTEST 45.13 01/29/10 OTHER PERM TRACHEOSTOMY 31.29 09/15/01 OTHER PLEURAL INCISION 34.09 09/15/01 RPR S/N/AX/GEN/TRNK2.6-7.5CM 06618 08/21/01 Internal Medicine Assmt/Plan - Assessment Assessment: ASSESSMENT AND PLAN: Fever, pneumonia, leukocytosis, sepsis, anemia, renal insufficiency, dementia, hypertension, coronary artery disease, history of congestive heart failure. poor po intake - Plan Plan: PLAN: ngt inserted, Continue the patient also on bronchodilator treatments, the IV antibiotic.iv hydration We will start the patient on vancomycin as well as Zosyn. We will send for sputum Gram stain, C and S as well as blood culture. We will admit the patient to telemetry. We will follow the patient closely.will refer pt to speech dw dr chappell Nutritional Asmnt/Malnutr-PDOC - Dietary Evaluation Malnutrition Findings (Please click <Entered> for more info): Nutritional Asmnt/Malnutrition Start: 03/10/19 17: 55 Text: Status: Complete Freq: Protocol: Document 03/10/19 17:56 LCHENG (Rec: 03/10/19 18:08 [email or web address]) Nutritional Asmnt/Malnutrition Patient General Information Nutritional Screening High Risk Diagnosis PNA Pertinent Medical Hx/Surgical Hx HTN, CAD, CHF, asthma/COPD, PUD/GERD, thyroid disorder, dementia Subjective Information Pt seen in bed, confused, not able to participated in communication. Per nurse note, pt failed swallow eval and kept on NPO. Current Diet Order/ Nutrition Support pureed [facility] thick Pertinent Medications oscal w/vit D, D5-0.45ns, colace, synthroid, piperacillin, vancomycin, vit D Pertinent Labs 03/09 BUN 35, Glucose 114, POC 127, alb 3.3 Nutritional Hx/Data Height 1.55 m Height (Calculated Centimeters) 154.9 Current Weight (lbs) 55.792 kg Weight (Calculated Kilograms) 55.8 Weight (Calculated Grams) 59896.9 [place] Body Weight 112 Body Mass Index (BMI) 23.2 Weight Status Approriate GI Symptoms GI Symptoms None Last BM none Difficult in: None Skin Integrity/Comment: intact Current %PO Negligible < 25% Estimated Nutritional Goals BEE in Kcals: Using Current wt Calories/Kcals/Kg 25-30 Kcals Calculated 9533-6438 Protein: Using Current wt Protein g/k Protein Calculated 56 Fluid: ml 1400-1680ml (1ml/kcal) Nutritional Problem 1. Problem Problem altered GI function Etiology swallowing difficulty Signs/Symptoms: pt falied swallow eval and on NPO Malnutrition Alert Is there a minimum of two criteria No selected? Query Text:Check all the applicable criteria. A minimum of two criteria are recommended for diagnosis of either severe or non-severe malnutrition. Malnutrition Related to Morbid Obesity Malnutrition related to morbid obesity No Intervention/Recommendation Comments 1. Monitor NPO status. Consider alternative nutrition routes if pt continue not tolerating oral intake. 2. Monitor PO intake, wt, labs and skin integrity 3. F/U as high risk in 2-3 days Expected Outcomes/Goals Expected Outcomes/Goals 1. pt to meet nutritional needs by alteranative nutrition route. 2. Wt stability, skin to remain intact, labs to approach WNL.
--- NOTE | 2019-03-11 14:59 | General Progress Note ---
Subjective - Review of Systems Service Date: 03/11/19 Subjective: Patient still complained of shortness of breath congestion occasional palpitation Objective - Results Result Diagrams: 03/11/19 06:22 03/11/19 06:22 Recent Labs: Laboratory Last Values WBC 15.9 Th/cmm (4.8-10.8) H 03/11/19 06:22 RBC 3.14 Mil/cmm (3.80-5.80) L 03/11/19 06:22 Hgb 10.1 gm/dL (12-16) L 03/11/19 06:22 Hct 30.0 % (41.0-60) L 03/11/19 06:22 MCV 95.7 fl (80-99) 03/11/19 06:22 MCH 32.2 pg (27.0-31.0) H 03/11/19 06:22 MCHC Differential 33.7 pg (28.0-36.0) 03/11/19 06:22 RDW 13.1 % (11.5-20.0) 03/11/19 06:22 Plt Count 315 Th/cmm (150-400) 03/11/19 06:22 MPV 7.5 fl 03/11/19 06:22 Add Manual Diff YES 03/11/19 06:22 Neutrophils % SR TECHNICAL SALES CONSULTANT 03/11/19 06:22 Band Neutrophils % 9 % (0-10) 03/09/19 18:10 Lymphocytes % SR TECHNICAL SALES CONSULTANT 03/11/19 06:22 Monocytes % SR TECHNICAL SALES CONSULTANT 03/11/19 06:22 Eosinophils % SR TECHNICAL SALES CONSULTANT 03/11/19 06:22 Basophils % SR TECHNICAL SALES CONSULTANT 03/11/19 06:22 Neutrophils (Manual) 84 % (40-80) H 03/11/19 06:22 Lymphocytes 8 % (20-50) L 03/11/19 06:22 Monocytes 8 % (2-10) 03/11/19 06:22 Eosinophils 0 % (0-5) 03/11/19 06:22 Basophils 0 % (0-3) 03/11/19 06:22 Platelet Estimate ADEQUATE (NORMAL) 03/11/19 06:22 PT 12.3 SECONDS (9.5-11.5) H 03/09/19 18:10 INR 1.19 (0.5-1.4) 03/09/19 18:10 PTT (Actin FS) 29.7 SECONDS (26.0-38.0) 03/09/19 18:10 Sodium 142 mEq/L (136-145) 03/11/19 06:22 Potassium 3.4 mEq/L (3.5-5.1) L 03/11/19 06:22 Chloride 105 mEq/L (98-107) 03/11/19 06:22 Carbon Dioxide 30.0 mEq/L (21.0-31.0) 03/11/19 06:22 Anion Gap 10.4 (7.0-16.0) 03/11/19 06:22 BUN 21 mg/dL (7-25) 03/11/19 06:22 Creatinine 0.8 mg/dL (0.7-1.3) 03/11/19 06:22 Est GFR ( Amer) TNP 03/11/19 06:22 Est GFR (Non-Af Amer) TNP 03/11/19 06:22 BUN/Creatinine Ratio 26.3 03/11/19 06:22 Glucose 99 mg/dL (70-105) 03/11/19 06:22 POC Glucose 127 MG/DL (70 - 105) H 03/09/19 22:51 Whole Bld Lactic Acid 1.01 mmol/L (0.60-1.99) 03/09/19 18:10 Calcium 8.7 mg/dL (8.6-10.3) 03/11/19 06:22 Total Bilirubin 0.4 mg/dL (0.3-1.0) 03/11/19 06:22 AST 8 U/L (13-39) L 03/11/19 06:22 ALT 6 U/L (7-52) L 03/11/19 06:22 Alkaline Phosphatase 47 U/L (34-104) 03/11/19 06:22 Ammonia 43 umol/L (16-53) 03/11/19 06:22 Creatine Kinase 59 U/L (30-223) 03/09/19 18:10 B-Natriuretic Peptide 296.0 pg/mL (5.0-100.0) H 03/11/19 06:22 Total Protein 6.1 gm/dL (6.0-8.3) 03/11/19 06:22 Albumin 2.7 gm/dL (4.2-5.5) L 03/11/19 06:22 Globulin 3.4 gm/dL 03/11/19 06:22 Albumin/Globulin Ratio 0.8 (1.0-1.8) L 03/11/19 06:22 TSH 1.25 uIU/ml (0.34-5.60) 03/11/19 06:22 - Physical Exam Vitals and I&O: Vital Signs Temp 98.3 F 03/11/19 13:00 Pulse 74 03/11/19 14:42 Resp 18 03/11/19 14:42 BP 115/61 03/11/19 13:00 Pulse Ox 95 03/11/19 14:42 Intake & Output 03/10/19 03/11/19 03/11/19 18:59 06:59 18:59 Intake Total 350 1400 937.333 Balance 350 1400 937.333 Weight (lbs) 55.792 kg 55.792 kg Intake: Intake, IV Amount 350 1200 937.333 D5-0.45NS 1,000 ml @ 80 1000 937.333 mls/hr IV .[id number] [facility] Rx #:[id number] Piperacillin Sodium/ 100 200 Tazobact 4.5 gm In Sodium Chloride 0.9% 100 ml @ 100 mls/hr IV Q8HR [facility] Rx #:[id number] Vancomycin HCl 1.25 gm In 250 Sodium Chloride 0.9% 250 ml @ 165 mls/hr IV Q24H [facility] Rx#:[id number] Tube Feeding 200 Other: Weight Source Bedscale Bedscale Active Medications: Current Medications Acetaminophen (Tylenol) 650 mg PO Q4H PRN PRN Reason: Pain Or Fever above 101 Stop: 05/08/19 19:05 Albuterol Sulfate (Albuterol 2.5mg/3ml Neb Ud) 2.5 mg HHN QIDRT [facility] Stop: 05/09/19 06:59 Last Admin: 03/11/19 14:42 Dose: 2.5 mg Aspirin (Aspirin Chewable) 81 mg PO DAILY [facility] Stop: 05/09/19 08:59 Last Admin: 03/11/19 08:37 Dose: 81 mg Calcium/Vitamin D (Oscal W/Vitamin D) 1 tab PO QPM [facility] Stop: 05/09/19 16:59 Last Admin: 03/10/19 17:58 Dose: 1 tab Diltiazem HCl (Cardizem) 30 mg PO TID [facility] Stop: 05/09/19 13:59 Last Admin: 03/11/19 13:57 Dose: Not Given Diltiazem HCl (Cardizem) 20 mg IVP Q4H PRN PRN Reason: HR Greater than 130 per min Stop: 05/09/19 11:49 Last Admin: 03/10/19 12:16 Dose: 20 mg Divalproex Sodium (Depakote Sprinkle) 250 mg PO Q12HR [facility]; Protocol Stop: 05/08/19 20:59 Last Admin: 03/11/19 08:37 Dose: 250 mg Docusate Sodium (Colace) 100 mg PO DAILY [facility] Stop: 05/09/19 08:59 Last Admin: 03/11/19 08:37 Dose: 100 mg Donepezil HCl (Aricept) 10 mg PO HS [facility] Stop: 05/08/19 20:59 Last Admin: 03/10/19 22:10 Dose: 10 mg Guaifenesin (Robitussin) 200 mg PO Q4HR PRN PRN Reason: Cough or Congestion Stop: 05/08/19 19:05 Dextrose/Sodium Chloride (D5-0.45ns) 1,000 mls @ 80 mls/hr IV .[id number] [facility] Stop: 05/08/19 19:14 Last Admin: 03/11/19 09:58 Dose: 80 mls/hr Piperacillin Sod/Tazobactam (Sod 4.5 gm/ Sodium Chloride) 100 mls @ 100 mls/hr IV Q8HR [facility] Stop: 05/08/19 20:59 Last Admin: 03/11/19 12:31 Dose: 100 mls/hr Vancomycin HCl 1.25 gm/ Sodium (Chloride) 250 mls @ 165 mls/hr IV Q24H [facility] Stop: 05/09/19 10:59 Last Admin: 03/11/19 09:59 Dose: 165 mls/hr Ipratropium [place] (Atrovent Neb 0.5mg/2.5ml) 0.5 mg HHN QIDRT [facility] Stop: 05/09/19 06:59 Last Admin: 03/11/19 14:41 Dose: 0.5 mg Levothyroxine Sodium (Synthroid) 0.1 mg PO QDAC [facility] Stop: 05/09/19 07:29 Last Admin: 03/11/19 06:58 Dose: 0.1 mg Magnesium Hydroxide (Milk Of Magnesia) 30 ml PO DAILY PRN PRN Reason: Constipation Stop: 05/08/19 19:03 Miscellaneous (Vancomycin Iv Per Pharmacy) 1 ea MC PRN [facility] Stop: 05/08/19 19:14 Vitamin D (Vitamin D) 400 iu PO Q12HR [facility] Stop: 05/08/19 20:59 Last Admin: 03/11/19 08:37 Dose: 400 iu Zolpidem Tartrate (Ambien) 10 mg PO HS PRN PRN Reason: Insomnia Stop: 05/08/19 19:05 General: No acute distress HEENT: Mucous membr. moist/pink Neck: Supple, JVD, +2 carotid pulse wo bruit (flat) Cardiovascular: Regular rate, Normal S1, Normal S2, Systolic murmurs, Other Lungs: Clear to auscultation (tachycardia), Other (wheezing and rhonchi) Abdomen: Bowel sounds, Soft, Other (no organomegaly) Extremities: Edema (no pedal edema) Neurological: Strength at 5/5 X4 ext, Normal tone, Cranial nerves 3-12 NL, Reflexes 2+ - Procedures Procedures: Procedures Procedure Code Date CLOSURE SKIN & SUBCUTANEOUS NEC 86.59 08/21/01 COLONOSCOPY AND BIOPSY 29616 09/04/12 CONTINUED VENTILATOR MGMT 01497 09/15/01 CONTINUOUS INVASIVE MECHANICAL VENTILATION =/>96 CONSEC HRS 96.72 09/15/01 EGD BIOPSY SINGLE/MULTIPLE 70377 04/06/17 EGD DIAGNOSTIC BRUSH WASH 13218 01/29/10 ENDOSC POLYPECTOMY OF LG INTEST 45.42 09/04/12 ESOPHAGOGASTRODUODENOSCOPY [EGD] W/CLOSED BIOPSY 45.16 07/04/14 EXCISION OF STOMACH, ENDO, DIAGN [id number] 04/06/17 INCISION OF WINDPIPE 67107 09/15/01 INITIAL INSERT OF TRANS. LEADS INTO VENTRICLE 37.71 09/15/01 INITIAL VENTILATOR MGMT 75099 09/15/01 INSERT EMERGENCY AIRWAY 08663 09/15/01 INSERT ENDOTRACHEAL TUBE 96.04 09/15/01 INSERT HEART PM VENTRICULAR 36294 09/15/01 INSERT SING CHAMB DEV, NOT SPEC RATE RESPONSIVE 37.81 09/15/01 INSERTION OF CHEST TUBE 61904 09/15/01 INTRODUCTION OF SERUM/TOX/VACCINE INTO MUSCLE, PERC APPROACH [id number] 04/06/17 NON-INVASIVE MECHANICAL VENTILATION 93.90 01/29/10 OTHER ENDOSCOPY OF SM INTEST 45.13 01/29/10 OTHER PERM TRACHEOSTOMY 31.29 09/15/01 OTHER PLEURAL INCISION 34.09 09/15/01 RPR S/N/AX/GEN/TRNK2.6-7.5CM 80375 08/21/01 Assessment/Plan - Assessment Assessment: Supraventricular tachycardia Sepsis Protein calorie malnutrition Dementia Hypertension Congestive heart failure chronic Stable angina COPD Cerebral palsy - Plan Plan: Continue IV antibiotics we'll start patient on Cardizem 20 mg IV push every 4 hours when necessary to control heart rate as patient ECHOCARDIOGRAM Nutritional Asmnt/Malnutr-PDOC - Dietary Evaluation Malnutrition Findings (Please click <Entered> for more info): Nutritional Asmnt/Malnutrition Start: 03/10/19 17: 55 Text: Status: Complete Freq: Protocol: Document 03/10/19 17:56 [email or web address] (Rec: 03/10/19 18:08 LCTEN SILVESTRE-FN) Nutritional Asmnt/Malnutrition Patient General Information Nutritional Screening High Risk Diagnosis PNA Pertinent Medical Hx/Surgical Hx HTN, CAD, CHF, asthma/COPD, PUD/GERD, thyroid disorder, dementia Subjective Information Pt seen in bed, confused, not able to participated in communication. Per nurse note, pt failed swallow eval and kept on NPO. Current Diet Order/ Nutrition Support pureed Juliette thick Pertinent Medications oscal w/vit D, D5-0.45ns, colace, synthroid, piperacillin, vancomycin, vit D Pertinent Labs 03/09 BUN 35, Glucose 114, POC 127, alb 3.3 Nutritional Hx/Data Height 1.55 m Height (Calculated Centimeters) 154.9 Current Weight (lbs) 55.792 kg Weight (Calculated Kilograms) 55.8 Weight (Calculated Grams) 36721.9 [place] Body Weight 112 Body Mass Index (BMI) 23.2 Weight Status Approriate GI Symptoms GI Symptoms None Last BM none Difficult in: None Skin Integrity/Comment: intact Current %PO Negligible < 25% Estimated Nutritional Goals BEE in Kcals: Using Current wt Calories/Kcals/Kg 25-30 Kcals Calculated 8045-2242 Protein: Using Current wt Protein g/k Protein Calculated 56 Fluid: ml 1400-1680ml (1ml/kcal) Nutritional Problem 1. Problem Problem altered GI function Etiology swallowing difficulty Signs/Symptoms: pt falied swallow eval and on NPO Malnutrition Alert Is there a minimum of two criteria No selected? Query Text:Check all the applicable criteria. A minimum of two criteria are recommended for diagnosis of either severe or non-severe malnutrition. Malnutrition Related to Morbid Obesity Malnutrition related to morbid obesity No Intervention/Recommendation Comments 1. Monitor NPO status. Consider alternative nutrition routes if pt continue not tolerating oral intake. 2. Monitor PO intake, wt, labs and skin integrity 3. F/U as high risk in 2-3 days Expected Outcomes/Goals Expected Outcomes/Goals 1. pt to meet nutritional needs by alteranative nutrition route. 2. Wt stability, skin to remain intact, labs to approach WNL.
[2019-03-11] MEDS: Calcium Carb/Vit D 500 mg/200 U Tab PO SCH (16:03)
--- NOTE | 2019-03-12 01:50 | Consultation ---
DATE OF CONSULTATION: 03/11/2019 REASON FOR CONSULTATION: Dysphagia. HISTORY OF PRESENT ILLNESS: This consult was obtained through the courtesy of Dr. Chris for this 83-year-old with a history of mental retardation, hypertension, coronary artery disease, congestive heart failure, dementia, cerebral palsy, and COPD; admitted from the nursing facility for fever, congestion now, not eating, so GI consult was called in for further evaluation. The patient is responsive, but not able to provide any history. The patient has not been eating, but this is something new. PAST MEDICAL HISTORY: Dementia, cerebral palsy, COPD, mentally challenged, CHF, coronary artery disease, and hypertension. PAST SURGICAL HISTORY: Not known. SOCIAL HISTORY: At this time, the patient is a nonsmoker, nonalcoholic, non-IV drug abuser. FAMILY HISTORY: Noncontributory and unobtainable. ALLERGIES: No known drug allergy. MEDICATIONS: Prior to admission including Tylenol, Depakote, Lasix, albuterol, and Atrovent. Here, the patient is on Tylenol, albuterol, aspirin, calcium, Cardizem, Depakote, Colace, Aricept, Robitussin, Ativan, Synthroid, milk of magnesia, vancomycin, and vitamin D. REVIEW OF SYSTEMS: Unobtainable. PHYSICAL EXAMINATION: GENERAL: The patient is awake, responsive. VITAL SIGNS: Blood pressure is 108/50, heart rate 75, respiratory rate 18, and temperature is 98.5. HEAD AND NECK: Pupils reactive to light. Extraocular muscles could not be tested. Oral cavity, no lesion. NECK: Supple. CHEST: Good air entry. LUNGS: Clear to auscultation. CARDIOVASCULAR: Showed regular rate and rhythm. No murmur or gallop. ABDOMEN: Soft, positive bowel sound. Abdomen is not tender, not distended. Bowel sounds were present. EXTREMITIES: Lower extremities, no edema. CENTRAL NERVOUS SYSTEM: The patient is weak and flaccid on the right side, not moving it. LABORATORY DATA: White count 15.9, H and H are 10.1 and 30.0 with platelets of 315. Of note when the patient presented, white count was 23.6. PT was 12.3 seconds. Chemistry showed normal liver enzymes. Albumin was low at 2.7. IMPRESSION: An 83-year-old now with newly onset dysphagia. ASSESSMENT: Dysphagia. This is an acute event may be this is due to the viral or sepsis. The patient already has an NG tube. We will try to continue his NG tube for the next couple of days. We will watch him over the weekend. If he improves, then we can do swallowing eval and feed him, if he does not, then we will need to get a PEG which can be done on Thursday or Thursday. Other medical problems such as coronary artery disease, dementia, cerebral palsy, mentally challenged, chronic obstructive pulmonary disease, hypertension as per Dr. Chris. Thank you, Dr. Chris for allowing me to participate in the care of the patient. If you have any further questions, please let me know. [facility]# [id number]
[2019-03-12] MEDS: Levothyroxine 0.1 Mg Tab PO SCH (06:36)
[2019-03-12] MEDS: Ipratropium Neb 0.5 mg/2.5 mL UD HHN SCH ×4 (06:42→19:04)
[2019-03-12] MEDS: Albuterol Nebulizer 2.5mg/3mL HHN SCH ×4 (06:42→19:04)
[2019-03-12 06:48] LABS: HEMATOCRIT 29.2 % (41.0-60); HEMOGLOBIN 9.6 gm/dL (12-16); MEAN CELL VOLUME 96.9 fl (80-99); MEAN CORPUSCULAR HEMOGLOBIN 31.7 pg (27.0-31.0); MEAN CORPUSCULAR HGB CONC 32.8 pg (28.0-36.0); PLATELET COUNT 292 Th/cmm (150-400); RED BLOOD COUNT 3.01 Mil/cmm (3.80-5.80); WHITE BLOOD COUNT 12.6 Th/cmm (4.8-10.8)
[2019-03-12 06:57] LABS: ANION GAP 7.4 (7.0-16.0); BUN - UREA NITROGEN 18 mg/dL (7-25); CALCIUM SERUM 8.6 mg/dL (8.6-10.3); CARBON DIOXIDE 31.1 mEq/L (21.0-31.0); CHLORIDE 104 mEq/L (98-107); CREATININE - SERUM 0.6 mg/dL (0.7-1.3); GLUCOSE 114 mg/dL (70-105); POTASSIUM SERUM 3.5 mEq/L (3.5-5.1); SODIUM SERUM 139 mEq/L (136-145)
[2019-03-12 07:37] LABS: BAND NEUTROPHILE 1 % (0-10); LYMPHOCYTE 10 % (20-50); MONOCYTE 9 % (2-10); NEUTROPHILS 80 % (40-80); PLATELET ESTIMATE ADEQUATE (NORMAL)
[2019-03-12] MEDS: Aspirin 81mg Chewable Tab PO SCH (08:35)
--- NOTE | 2019-03-12 11:10 | GI Progress Note ---
Subjective - Review of Systems Service Date: 03/12/19 Events since last encounter: No events Subjective: No change Tolerating tube feeding Objective - Results Result Diagrams: 03/12/19 06:12 03/12/19 06:12 Recent Labs: Laboratory Last Values WBC 12.6 Th/cmm (4.8-10.8) H 03/12/19 06:12 RBC 3.01 Mil/cmm (3.80-5.80) L 03/12/19 06:12 Hgb 9.6 gm/dL (12-16) L 03/12/19 06:12 Hct 29.2 % (41.0-60) L 03/12/19 06:12 MCV 96.9 fl (80-99) 03/12/19 06:12 MCH 31.7 pg (27.0-31.0) H 03/12/19 06:12 MCHC Differential 32.8 pg (28.0-36.0) 03/12/19 06:12 RDW 13.0 % (11.5-20.0) 03/12/19 06:12 Plt Count 292 Th/cmm (150-400) 03/12/19 06:12 MPV 8.0 fl 03/12/19 06:12 Add Manual Diff YES 03/12/19 06:12 Neutrophils % SECURITIES DEALER 03/12/19 06:12 Band Neutrophils % 1 % (0-10) 03/12/19 06:12 Lymphocytes % SECURITIES DEALER 03/12/19 06:12 Monocytes % SECURITIES DEALER 03/12/19 06:12 Eosinophils % SECURITIES DEALER 03/12/19 06:12 Basophils % SECURITIES DEALER 03/12/19 06:12 Neutrophils (Manual) 80 % (40-80) 03/12/19 06:12 Lymphocytes 10 % (20-50) L 03/12/19 06:12 Monocytes 9 % (2-10) 03/12/19 06:12 Eosinophils 0 % (0-5) 03/11/19 06:22 Basophils 0 % (0-3) 03/11/19 06:22 Platelet Estimate ADEQUATE (NORMAL) 03/12/19 06:12 PT 12.3 SECONDS (9.5-11.5) H 03/09/19 18:10 INR 1.19 (0.5-1.4) 03/09/19 18:10 PTT (Actin FS) 29.7 SECONDS (26.0-38.0) 03/09/19 18:10 Sodium 139 mEq/L (136-145) 03/12/19 06:12 Potassium 3.5 mEq/L (3.5-5.1) 03/12/19 06:12 Chloride 104 mEq/L (98-107) 03/12/19 06:12 Carbon Dioxide 31.1 mEq/L (21.0-31.0) H 03/12/19 06:12 Anion Gap 7.4 (7.0-16.0) 03/12/19 06:12 BUN 18 mg/dL (7-25) 03/12/19 06:12 Creatinine 0.6 mg/dL (0.7-1.3) L 03/12/19 06:12 Est GFR ( Amer) TNP 03/12/19 06:12 Est GFR (Non-Af Amer) TNP 03/12/19 06:12 BUN/Creatinine Ratio 30.0 03/12/19 06:12 Glucose 114 mg/dL (70-105) H 03/12/19 06:12 POC Glucose 127 MG/DL (70 - 105) H 03/09/19 22:51 Whole Bld Lactic Acid 1.01 mmol/L (0.60-1.99) 03/09/19 18:10 Calcium 8.6 mg/dL (8.6-10.3) 03/12/19 06:12 Magnesium 2.0 mg/dL (1.9-2.7) 03/12/19 06:12 Total Bilirubin 0.4 mg/dL (0.3-1.0) 03/11/19 06:22 AST 8 U/L (13-39) L 03/11/19 06:22 ALT 6 U/L (7-52) L 03/11/19 06:22 Alkaline Phosphatase 47 U/L (34-104) 03/11/19 06:22 Ammonia 43 umol/L (16-53) 03/11/19 06:22 Creatine Kinase 59 U/L (30-223) 03/09/19 18:10 B-Natriuretic Peptide 296.0 pg/mL (5.0-100.0) H 03/11/19 06:22 Total Protein 6.1 gm/dL (6.0-8.3) 03/11/19 06:22 Albumin 2.7 gm/dL (4.2-5.5) L 03/11/19 06:22 Globulin 3.4 gm/dL 03/11/19 06:22 Albumin/Globulin Ratio 0.8 (1.0-1.8) L 03/11/19 06:22 TSH 1.25 uIU/ml (0.34-5.60) 03/11/19 06:22 Vancomycin Trough 11.2 ug/mL (5-10) H 03/12/19 10:35 - Physical Exam Vitals and I&O: Vital Signs Temp 97.7 F 03/12/19 10:16 Pulse 79 03/12/19 10:38 Resp 32 03/12/19 10:38 BP 112/64 03/12/19 10:16 Pulse Ox 94 03/12/19 10:38 Intake & Output 03/11/19 03/12/19 03/12/19 18:59 06:59 18:59 Intake Total 1237.333 100 Output Total 0 Balance 1237.333 100 Weight (lbs) 55.792 kg 55.792 kg Intake: Intake, IV Amount 1037.333 100 D5-0.45NS 1,000 ml @ 80 937.333 mls/hr IV .[id number] [facility] Rx #:[id number] Piperacillin Sodium/ 100 100 Tazobact 4.5 gm In Sodium Chloride 0.9% 100 ml @ 100 mls/hr IV Q8HR [facility] Rx #:[id number] Tube Feeding 200 Output: Stool 0 Other: # Voids 3 3 # Bowel Movements 1 Weight Source Bedscale Bedscale Active Medications: Current Medications Acetaminophen (Tylenol) 650 mg PO Q4H PRN PRN Reason: Pain Or Fever above 101 Stop: 05/08/19 19:05 Albuterol Sulfate (Albuterol 2.5mg/3ml Neb Ud) 2.5 mg HHN QIDRT [facility] Stop: 05/09/19 06:59 Last Admin: 03/12/19 10:33 Dose: 2.5 mg Aspirin (Aspirin Chewable) 81 mg PO DAILY [facility] Stop: 05/09/19 08:59 Last Admin: 03/12/19 08:35 Dose: 81 mg Calcium/Vitamin D (Oscal W/Vitamin D) 1 tab PO QPM [facility] Stop: 05/09/19 16:59 Last Admin: 03/11/19 16:03 Dose: 1 tab Diltiazem HCl (Cardizem) 20 mg IVP Q4H PRN PRN Reason: HR Greater than 130 per min Stop: 05/09/19 11:49 Last Admin: 03/10/19 12:16 Dose: 20 mg Divalproex Sodium (Depakote Sprinkle) 250 mg PO Q12HR [facility]; Protocol Stop: 05/08/19 20:59 Last Admin: 03/12/19 08:35 Dose: 250 mg Docusate Sodium (Colace) 100 mg PO DAILY [facility] Stop: 05/09/19 08:59 Last Admin: 03/12/19 08:35 Dose: 100 mg Donepezil HCl (Aricept) 10 mg PO HS [facility] Stop: 05/08/19 20:59 Last Admin: 03/11/19 21:48 Dose: 10 mg Guaifenesin (Robitussin) 200 mg PO Q4HR PRN PRN Reason: Cough or Congestion Stop: 05/08/19 19:05 Dextrose/Sodium Chloride (D5-0.45ns) 1,000 mls @ 80 mls/hr IV .[id number] [facility] Stop: 05/08/19 19:14 Last Admin: 03/11/19 09:58 Dose: 80 mls/hr Piperacillin Sod/Tazobactam (Sod 4.5 gm/ Sodium Chloride) 100 mls @ 100 mls/hr IV Q8HR [facility] Stop: 05/08/19 20:59 Last Admin: 03/12/19 05:31 Dose: 100 mls/hr Vancomycin HCl 1.25 gm/ Sodium (Chloride) 250 mls @ 165 mls/hr IV Q24H [facility] Stop: 05/09/19 10:59 Last Admin: 03/11/19 09:59 Dose: 165 mls/hr Ipratropium [place] (Atrovent Neb 0.5mg/2.5ml) 0.5 mg HHN QIDRT [facility] Stop: 05/09/19 06:59 Last Admin: 03/12/19 10:34 Dose: 0.5 mg Levothyroxine Sodium (Synthroid) 0.1 mg PO QDAC [facility] Stop: 05/09/19 07:29 Last Admin: 03/12/19 06:36 Dose: 0.1 mg Magnesium Hydroxide (Milk Of Magnesia) 30 ml PO DAILY PRN PRN Reason: Constipation Stop: 05/08/19 19:03 Miscellaneous (Vancomycin Iv Per Pharmacy) 1 ea MC PRN [facility] Stop: 05/08/19 19:14 Vitamin D (Vitamin D) 400 iu PO Q12HR [facility] Stop: 05/08/19 20:59 Last Admin: 03/12/19 08:35 Dose: 400 iu Zolpidem Tartrate (Ambien) 10 mg PO HS PRN PRN Reason: Insomnia Stop: 05/08/19 19:05 General: No acute distress HEENT: Mucous membr. moist/pink Cardiovascular: Regular rate, Normal S1, Normal S2, Systolic murmurs, Other Lungs: Clear to auscultation (tachycardia), Other (wheezing and rhonchi) Abdomen: Bowel sounds, Soft, Other (no organomegaly), no Tender Extremities: Edema (no pedal edema) Neurological: Strength at 5/5 X4 ext, Normal tone, Cranial nerves 3-12 NL, Reflexes 2+ - Procedures Procedures: Procedures Procedure Code Date CLOSURE SKIN & SUBCUTANEOUS NEC 86.59 08/21/01 COLONOSCOPY AND BIOPSY 61651 09/04/12 CONTINUED VENTILATOR MGMT 53211 09/15/01 CONTINUOUS INVASIVE MECHANICAL VENTILATION =/>96 CONSEC HRS 96.72 09/15/01 EGD BIOPSY SINGLE/MULTIPLE 17892 04/06/17 EGD DIAGNOSTIC BRUSH WASH 30649 01/29/10 ENDOSC POLYPECTOMY OF LG INTEST 45.42 09/04/12 ESOPHAGOGASTRODUODENOSCOPY [EGD] W/CLOSED BIOPSY 45.16 07/04/14 EXCISION OF STOMACH, ENDO, DIAGN [id number] 04/06/17 INCISION OF WINDPIPE 13169 09/15/01 INITIAL INSERT OF TRANS. LEADS INTO VENTRICLE 37.71 09/15/01 INITIAL VENTILATOR MGMT 76037 09/15/01 INSERT EMERGENCY AIRWAY 52878 09/15/01 INSERT ENDOTRACHEAL TUBE 96.04 09/15/01 INSERT HEART PM VENTRICULAR 66807 09/15/01 INSERT SING CHAMB DEV, NOT SPEC RATE RESPONSIVE 37.81 09/15/01 INSERTION OF CHEST TUBE 75000 09/15/01 INTRODUCTION OF SERUM/TOX/VACCINE INTO MUSCLE, PERC APPROACH [id number] 04/06/17 NON-INVASIVE MECHANICAL VENTILATION 93.90 01/29/10 OTHER ENDOSCOPY OF SM INTEST 45.13 01/29/10 OTHER PERM TRACHEOSTOMY 31.29 09/15/01 OTHER PLEURAL INCISION 34.09 09/15/01 RPR S/N/AX/GEN/TRNK2.6-7.5CM 73894 08/21/01 Assessment/Plan - Plan Plan: Dysphagia Cont NG feeding If no improvement in couple of days then PEG
[2019-03-12 11:11] LABS: FOLIC ACID 15.1 ng/mL (>3.0)
[2019-03-12] MEDS: D5-0.45NS 1,000 ML IV SCH (12:06)
[2019-03-12] MEDS: Vancomycin HCl 1.5 GM in Sodium Chloride 0.9% 500 ML IV SCH (13:17)
--- NOTE | 2019-03-12 14:16 | General Progress Note ---
Subjective - Review of Systems Service Date: 03/12/19 Subjective: Patient still complained of shortness of breath congestion occasional palpitation Objective - Results Result Diagrams: 03/12/19 06:12 03/12/19 06:12 Recent Labs: Laboratory Last Values WBC 12.6 Th/cmm (4.8-10.8) H 03/12/19 06:12 RBC 3.01 Mil/cmm (3.80-5.80) L 03/12/19 06:12 Hgb 9.6 gm/dL (12-16) L 03/12/19 06:12 Hct 29.2 % (41.0-60) L 03/12/19 06:12 MCV 96.9 fl (80-99) 03/12/19 06:12 MCH 31.7 pg (27.0-31.0) H 03/12/19 06:12 MCHC Differential 32.8 pg (28.0-36.0) 03/12/19 06:12 RDW 13.0 % (11.5-20.0) 03/12/19 06:12 Plt Count 292 Th/cmm (150-400) 03/12/19 06:12 MPV 8.0 fl 03/12/19 06:12 Add Manual Diff YES 03/12/19 06:12 Neutrophils % SPECIMEN PREPARATION ASSISTANT 03/12/19 06:12 Band Neutrophils % 1 % (0-10) 03/12/19 06:12 Lymphocytes % SPECIMEN PREPARATION ASSISTANT 03/12/19 06:12 Monocytes % SPECIMEN PREPARATION ASSISTANT 03/12/19 06:12 Eosinophils % SPECIMEN PREPARATION ASSISTANT 03/12/19 06:12 Basophils % SPECIMEN PREPARATION ASSISTANT 03/12/19 06:12 Neutrophils (Manual) 80 % (40-80) 03/12/19 06:12 Lymphocytes 10 % (20-50) L 03/12/19 06:12 Monocytes 9 % (2-10) 03/12/19 06:12 Eosinophils 0 % (0-5) 03/11/19 06:22 Basophils 0 % (0-3) 03/11/19 06:22 Platelet Estimate ADEQUATE (NORMAL) 03/12/19 06:12 PT 12.3 SECONDS (9.5-11.5) H 03/09/19 18:10 INR 1.19 (0.5-1.4) 03/09/19 18:10 PTT (Actin FS) 29.7 SECONDS (26.0-38.0) 03/09/19 18:10 Sodium 139 mEq/L (136-145) 03/12/19 06:12 Potassium 3.5 mEq/L (3.5-5.1) 03/12/19 06:12 Chloride 104 mEq/L (98-107) 03/12/19 06:12 Carbon Dioxide 31.1 mEq/L (21.0-31.0) H 03/12/19 06:12 Anion Gap 7.4 (7.0-16.0) 03/12/19 06:12 BUN 18 mg/dL (7-25) 03/12/19 06:12 Creatinine 0.6 mg/dL (0.7-1.3) L 03/12/19 06:12 Est GFR ( Amer) TNP 03/12/19 06:12 Est GFR (Non-Af Amer) TNP 03/12/19 06:12 BUN/Creatinine Ratio 30.0 03/12/19 06:12 Glucose 114 mg/dL (70-105) H 03/12/19 06:12 POC Glucose 127 MG/DL (70 - 105) H 03/09/19 22:51 Whole Bld Lactic Acid 1.01 mmol/L (0.60-1.99) 03/09/19 18:10 Calcium 8.6 mg/dL (8.6-10.3) 03/12/19 06:12 Magnesium 2.0 mg/dL (1.9-2.7) 03/12/19 06:12 Total Bilirubin 0.4 mg/dL (0.3-1.0) 03/11/19 06:22 AST 8 U/L (13-39) L 03/11/19 06:22 ALT 6 U/L (7-52) L 03/11/19 06:22 Alkaline Phosphatase 47 U/L (34-104) 03/11/19 06:22 Ammonia 43 umol/L (16-53) 03/11/19 06:22 Creatine Kinase 59 U/L (30-223) 03/09/19 18:10 B-Natriuretic Peptide 296.0 pg/mL (5.0-100.0) H 03/11/19 06:22 Total Protein 6.1 gm/dL (6.0-8.3) 03/11/19 06:22 Albumin 2.7 gm/dL (4.2-5.5) L 03/11/19 06:22 Globulin 3.4 gm/dL 03/11/19 06:22 Albumin/Globulin Ratio 0.8 (1.0-1.8) L 03/11/19 06:22 Vitamin B12 452 pg/mL (232-1245) 03/11/19 06:22 Folic Acid 15.1 ng/mL (>3.0) 03/11/19 06:22 TSH 1.25 uIU/ml (0.34-5.60) 03/11/19 06:22 Vancomycin Trough 11.2 ug/mL (5-10) H 03/12/19 10:35 - Physical Exam Vitals and I&O: Vital Signs Temp 97.8 F 03/12/19 13:00 Pulse 92 03/12/19 13:00 Resp 18 03/12/19 13:00 BP 118/52 03/12/19 13:00 Pulse Ox 98 03/12/19 12:00 Intake & Output 03/11/19 03/12/19 03/12/19 18:59 06:59 18:59 Intake Total 4079.531 3229 Output Total 0 Balance 4815.265 3741 Weight (lbs) 55.792 kg 55.792 kg Intake: Intake, IV Amount 5151.691 1117 D5-0.45NS 1,000 ml @ 80 358.104 1793 mls/hr IV .[id number] [facility] Rx #:[id number] Piperacillin Sodium/ 100 200 Tazobact 4.5 gm In Sodium Chloride 0.9% 100 ml @ 100 mls/hr IV Q8HR [facility] Rx #:[id number] Tube Feeding 200 Output: Stool 0 Other: # Voids 3 3 # Bowel Movements 1 Weight Source Bedscale Bedscale Active Medications: Current Medications Acetaminophen (Tylenol) 650 mg PO Q4H PRN PRN Reason: Pain Or Fever above 101 Stop: 05/08/19 19:05 Albuterol Sulfate (Albuterol 2.5mg/3ml Neb Ud) 2.5 mg HHN QIDRT [facility] Stop: 05/09/19 06:59 Last Admin: 03/12/19 10:33 Dose: 2.5 mg Aspirin (Aspirin Chewable) 81 mg PO DAILY [facility] Stop: 05/09/19 08:59 Last Admin: 03/12/19 08:35 Dose: 81 mg Calcium/Vitamin D (Oscal W/Vitamin D) 1 tab PO QPM [facility] Stop: 05/09/19 16:59 Last Admin: 03/11/19 16:03 Dose: 1 tab Diltiazem HCl (Cardizem) 20 mg IVP Q4H PRN PRN Reason: HR Greater than 130 per min Stop: 05/09/19 11:49 Last Admin: 03/10/19 12:16 Dose: 20 mg Divalproex Sodium (Depakote Sprinkle) 250 mg PO Q12HR [facility]; Protocol Stop: 05/08/19 20:59 Last Admin: 03/12/19 08:35 Dose: 250 mg Docusate Sodium (Colace) 100 mg PO DAILY [facility] Stop: 05/09/19 08:59 Last Admin: 03/12/19 08:35 Dose: 100 mg Donepezil HCl (Aricept) 10 mg PO HS [facility] Stop: 05/08/19 20:59 Last Admin: 03/11/19 21:48 Dose: 10 mg Guaifenesin (Robitussin) 200 mg PO Q4HR PRN PRN Reason: Cough or Congestion Stop: 05/08/19 19:05 Dextrose/Sodium Chloride (D5-0.45ns) 1,000 mls @ 80 mls/hr IV .[id number] [facility] Stop: 05/08/19 19:14 Last Admin: 03/12/19 12:06 Dose: 80 mls/hr Piperacillin Sod/Tazobactam (Sod 4.5 gm/ Sodium Chloride) 100 mls @ 100 mls/hr IV Q8HR [facility] Stop: 05/08/19 20:59 Last Admin: 03/12/19 12:06 Dose: 100 mls/hr Vancomycin HCl 1.5 gm/ Sodium (Chloride) 500 mls @ 250 mls/hr IV Q24H [facility] Stop: 05/11/19 11:59 Last Admin: 03/12/19 13:17 Dose: 250 mls/hr Ipratropium [place] (Atrovent Neb 0.5mg/2.5ml) 0.5 mg HHN QIDRT [facility] Stop: 05/09/19 06:59 Last Admin: 03/12/19 10:34 Dose: 0.5 mg Levothyroxine Sodium (Synthroid) 0.1 mg PO QDAC [facility] Stop: 05/09/19 07:29 Last Admin: 03/12/19 06:36 Dose: 0.1 mg Magnesium Hydroxide (Milk Of Magnesia) 30 ml PO DAILY PRN PRN Reason: Constipation Stop: 05/08/19 19:03 Miscellaneous (Vancomycin Iv Per Pharmacy) 1 ea MC PRN [facility] Stop: 05/08/19 19:14 Vitamin D (Vitamin D) 400 iu PO Q12HR [facility] Stop: 05/08/19 20:59 Last Admin: 03/12/19 08:35 Dose: 400 iu Zolpidem Tartrate (Ambien) 10 mg PO HS PRN PRN Reason: Insomnia Stop: 05/08/19 19:05 General: No acute distress HEENT: Mucous membr. moist/pink Neck: Supple, JVD, +2 carotid pulse wo bruit (flat) Cardiovascular: Regular rate, Normal S1, Normal S2, Systolic murmurs, Other Lungs: Clear to auscultation (tachycardia), Other (wheezing and rhonchi) Abdomen: Bowel sounds, Soft, Other (no organomegaly), no Tender Extremities: Edema (no pedal edema) Neurological: Strength at 5/5 X4 ext, Normal tone, Cranial nerves 3-12 NL, Reflexes 2+ - Procedures Procedures: Procedures Procedure Code Date CLOSURE SKIN & SUBCUTANEOUS NEC 86.59 08/21/01 COLONOSCOPY AND BIOPSY 34506 09/04/12 CONTINUED VENTILATOR MGMT 54330 09/15/01 CONTINUOUS INVASIVE MECHANICAL VENTILATION =/>96 CONSEC HRS 96.72 09/15/01 EGD BIOPSY SINGLE/MULTIPLE 41891 04/06/17 EGD DIAGNOSTIC BRUSH WASH 02790 01/29/10 ENDOSC POLYPECTOMY OF LG INTEST 45.42 09/04/12 ESOPHAGOGASTRODUODENOSCOPY [EGD] W/CLOSED BIOPSY 45.16 07/04/14 EXCISION OF STOMACH, ENDO, DIAGN [id number] 04/06/17 INCISION OF WINDPIPE 30792 09/15/01 INITIAL INSERT OF TRANS. LEADS INTO VENTRICLE 37.71 09/15/01 INITIAL VENTILATOR MGMT 39699 09/15/01 INSERT EMERGENCY AIRWAY 88352 09/15/01 INSERT ENDOTRACHEAL TUBE 96.04 09/15/01 INSERT HEART PM VENTRICULAR 80485 09/15/01 INSERT SING CHAMB DEV, NOT SPEC RATE RESPONSIVE 37.81 09/15/01 INSERTION OF CHEST TUBE 02316 09/15/01 INTRODUCTION OF SERUM/TOX/VACCINE INTO MUSCLE, PERC APPROACH [id number] 04/06/17 NON-INVASIVE MECHANICAL VENTILATION 93.90 01/29/10 OTHER ENDOSCOPY OF SM INTEST 45.13 01/29/10 OTHER PERM TRACHEOSTOMY 31.29 09/15/01 OTHER PLEURAL INCISION 34.09 09/15/01 RPR S/N/AX/GEN/TRNK2.6-7.5CM 84599 08/21/01 Assessment/Plan - Assessment Assessment: Supraventricular tachycardia Sepsis Protein calorie malnutrition Dementia Hypertension Congestive heart failure chronic Stable angina COPD Cerebral palsy - Plan Plan: Continue IV antibiotics we'll start patient on Cardizem 20 mg IV push every 4 hours when necessary to control heart rate as patient ECHOCARDIOGRAM IV antibiotics Nutritional Asmnt/Malnutr-PDOC - Dietary Evaluation Malnutrition Findings (Please click <Entered> for more info): Nutritional Asmnt/Malnutrition Start: 03/10/19 17: 55 Text: Status: Complete Freq: Protocol: Document 03/10/19 17:56 LCHENG (Rec: 03/10/19 18:08 LCHENG [email or web address]) Nutritional Asmnt/Malnutrition Patient General Information Nutritional Screening High Risk Diagnosis PNA Pertinent Medical Hx/Surgical Hx HTN, CAD, CHF, asthma/COPD, PUD/GERD, thyroid disorder, dementia Subjective Information Pt seen in bed, confused, not able to participated in communication. Per nurse note, pt failed swallow eval and kept on NPO. Current Diet Order/ Nutrition Support pureed [place] thick Pertinent Medications oscal w/vit D, D5-0.45ns, colace, synthroid, piperacillin, vancomycin, vit D Pertinent Labs 03/09 BUN 35, Glucose 114, POC 127, alb 3.3 Nutritional Hx/Data Height 1.55 m Height (Calculated Centimeters) 154.9 Current Weight (lbs) 55.792 kg Weight (Calculated Kilograms) 55.8 Weight (Calculated Grams) 77785.9 [place] Body Weight 112 Body Mass Index (BMI) 23.2 Weight Status Approriate GI Symptoms GI Symptoms None Last BM none Difficult in: None Skin Integrity/Comment: intact Current %PO Negligible < 25% Estimated Nutritional Goals BEE in Kcals: Using Current wt Calories/Kcals/Kg 25-30 Kcals Calculated 7438-5457 Protein: Using Current wt Protein g/k Protein Calculated 56 Fluid: ml 1400-1680ml (1ml/kcal) Nutritional Problem 1. Problem Problem altered GI function Etiology swallowing difficulty Signs/Symptoms: pt falied swallow eval and on NPO Malnutrition Alert Is there a minimum of two criteria No selected? Query Text:Check all the applicable criteria. A minimum of two criteria are recommended for diagnosis of either severe or non-severe malnutrition. Malnutrition Related to Morbid Obesity Malnutrition related to morbid obesity No Intervention/Recommendation Comments 1. Monitor NPO status. Consider alternative nutrition routes if pt continue not tolerating oral intake. 2. Monitor PO intake, wt, labs and skin integrity 3. F/U as high risk in 2-3 days Expected Outcomes/Goals Expected Outcomes/Goals 1. pt to meet nutritional needs by alteranative nutrition route. 2. Wt stability, skin to remain intact, labs to approach WNL.
--- NOTE | 2019-03-12 14:28 | Internal Medicine Prog Note ---
Internal Medicine Subjective - Subjective Service Date: 03/12/19 Patient is:: awake, non-verbal, non-interactive, eyes closed, in bed, agitated, confused Patient Complaints of:: congestion, SOB, unable to sleep Per staff patient has:: no adverse event, no episodes of fall, poor appetite, poor oral intake, gagging, combative, noncompliant, refusing care Internal Medicine Objective - Results Result Diagrams: 03/12/19 06:12 03/12/19 06:12 Recent Labs: Laboratory Last Values WBC 12.6 Th/cmm (4.8-10.8) H 03/12/19 06:12 RBC 3.01 Mil/cmm (3.80-5.80) L 03/12/19 06:12 Hgb 9.6 gm/dL (12-16) L 03/12/19 06:12 Hct 29.2 % (41.0-60) L 03/12/19 06:12 MCV 96.9 fl (80-99) 03/12/19 06:12 MCH 31.7 pg (27.0-31.0) H 03/12/19 06:12 MCHC Differential 32.8 pg (28.0-36.0) 03/12/19 06:12 RDW 13.0 % (11.5-20.0) 03/12/19 06:12 Plt Count 292 Th/cmm (150-400) 03/12/19 06:12 MPV 8.0 fl 03/12/19 06:12 Add Manual Diff YES 03/12/19 06:12 Neutrophils % DIRECTOR OF MARKETING AND PROMOTIONS 03/12/19 06:12 Band Neutrophils % 1 % (0-10) 03/12/19 06:12 Lymphocytes % DIRECTOR OF MARKETING AND PROMOTIONS 03/12/19 06:12 Monocytes % DIRECTOR OF MARKETING AND PROMOTIONS 03/12/19 06:12 Eosinophils % DIRECTOR OF MARKETING AND PROMOTIONS 03/12/19 06:12 Basophils % DIRECTOR OF MARKETING AND PROMOTIONS 03/12/19 06:12 Neutrophils (Manual) 80 % (40-80) 03/12/19 06:12 Lymphocytes 10 % (20-50) L 03/12/19 06:12 Monocytes 9 % (2-10) 03/12/19 06:12 Eosinophils 0 % (0-5) 03/11/19 06:22 Basophils 0 % (0-3) 03/11/19 06:22 Platelet Estimate ADEQUATE (NORMAL) 03/12/19 06:12 PT 12.3 SECONDS (9.5-11.5) H 03/09/19 18:10 INR 1.19 (0.5-1.4) 03/09/19 18:10 PTT (Actin FS) 29.7 SECONDS (26.0-38.0) 03/09/19 18:10 Sodium 139 mEq/L (136-145) 03/12/19 06:12 Potassium 3.5 mEq/L (3.5-5.1) 03/12/19 06:12 Chloride 104 mEq/L (98-107) 03/12/19 06:12 Carbon Dioxide 31.1 mEq/L (21.0-31.0) H 03/12/19 06:12 Anion Gap 7.4 (7.0-16.0) 03/12/19 06:12 BUN 18 mg/dL (7-25) 03/12/19 06:12 Creatinine 0.6 mg/dL (0.7-1.3) L 03/12/19 06:12 Est GFR ( Amer) TNP 03/12/19 06:12 Est GFR (Non-Af Amer) TNP 03/12/19 06:12 BUN/Creatinine Ratio 30.0 03/12/19 06:12 Glucose 114 mg/dL (70-105) H 03/12/19 06:12 POC Glucose 127 MG/DL (70 - 105) H 03/09/19 22:51 Whole Bld Lactic Acid 1.01 mmol/L (0.60-1.99) 03/09/19 18:10 Calcium 8.6 mg/dL (8.6-10.3) 03/12/19 06:12 Magnesium 2.0 mg/dL (1.9-2.7) 03/12/19 06:12 Total Bilirubin 0.4 mg/dL (0.3-1.0) 03/11/19 06:22 AST 8 U/L (13-39) L 03/11/19 06:22 ALT 6 U/L (7-52) L 03/11/19 06:22 Alkaline Phosphatase 47 U/L (34-104) 03/11/19 06:22 Ammonia 43 umol/L (16-53) 03/11/19 06:22 Creatine Kinase 59 U/L (30-223) 03/09/19 18:10 B-Natriuretic Peptide 296.0 pg/mL (5.0-100.0) H 03/11/19 06:22 Total Protein 6.1 gm/dL (6.0-8.3) 03/11/19 06:22 Albumin 2.7 gm/dL (4.2-5.5) L 03/11/19 06:22 Globulin 3.4 gm/dL 03/11/19 06:22 Albumin/Globulin Ratio 0.8 (1.0-1.8) L 03/11/19 06:22 Vitamin B12 452 pg/mL (232-1245) 03/11/19 06:22 Folic Acid 15.1 ng/mL (>3.0) 03/11/19 06:22 TSH 1.25 uIU/ml (0.34-5.60) 03/11/19 06:22 Vancomycin Trough 11.2 ug/mL (5-10) H 03/12/19 10:35 - Physical Exam Vitals and I&O: Vital Signs Temp 98 F 03/12/19 14:20 Pulse 75 03/12/19 14:20 Resp 18 03/12/19 14:20 BP 115/62 03/12/19 14:20 Pulse Ox 98 03/12/19 12:00 Intake & Output 03/11/19 03/12/19 03/12/19 18:59 06:59 18:59 Intake Total 8110.656 2257 Output Total 0 Balance 3068.243 5772 Weight (lbs) 123 lb 123 lb Intake: Intake, IV Amount 8267.006 6974 D5-0.45NS 1,000 ml @ 80 112.685 4000 mls/hr IV .[id number] [facility] Rx #:[id number] Piperacillin Sodium/ 100 200 Tazobact 4.5 gm In Sodium Chloride 0.9% 100 ml @ 100 mls/hr IV Q8HR [facility] Rx #:[id number] Tube Feeding 200 Output: Stool 0 Other: # Voids 3 3 # Bowel Movements 1 Weight Source Bedscale Bedscale Active Medications: Current Medications Acetaminophen (Tylenol) 650 mg PO Q4H PRN PRN Reason: Pain Or Fever above 101 Stop: 05/08/19 19:05 Albuterol Sulfate (Albuterol 2.5mg/3ml Neb Ud) 2.5 mg HHN QIDRT [facility] Stop: 05/09/19 06:59 Last Admin: 03/12/19 10:33 Dose: 2.5 mg Aspirin (Aspirin Chewable) 81 mg PO DAILY [facility] Stop: 05/09/19 08:59 Last Admin: 03/12/19 08:35 Dose: 81 mg Calcium/Vitamin D (Oscal W/Vitamin D) 1 tab PO QPM [facility] Stop: 05/09/19 16:59 Last Admin: 03/11/19 16:03 Dose: 1 tab Diltiazem HCl (Cardizem) 20 mg IVP Q4H PRN PRN Reason: HR Greater than 130 per min Stop: 05/09/19 11:49 Last Admin: 03/10/19 12:16 Dose: 20 mg Divalproex Sodium (Depakote Sprinkle) 250 mg PO Q12HR [facility]; Protocol Stop: 05/08/19 20:59 Last Admin: 03/12/19 08:35 Dose: 250 mg Docusate Sodium (Colace) 100 mg PO DAILY [facility] Stop: 05/09/19 08:59 Last Admin: 03/12/19 08:35 Dose: 100 mg Donepezil HCl (Aricept) 10 mg PO HS [facility] Stop: 05/08/19 20:59 Last Admin: 03/11/19 21:48 Dose: 10 mg Guaifenesin (Robitussin) 200 mg PO Q4HR PRN PRN Reason: Cough or Congestion Stop: 05/08/19 19:05 Dextrose/Sodium Chloride (D5-0.45ns) 1,000 mls @ 80 mls/hr IV .[id number] [facility] Stop: 05/08/19 19:14 Last Admin: 03/12/19 12:06 Dose: 80 mls/hr Piperacillin Sod/Tazobactam (Sod 4.5 gm/ Sodium Chloride) 100 mls @ 100 mls/hr IV Q8HR [facility] Stop: 05/08/19 20:59 Last Admin: 03/12/19 12:06 Dose: 100 mls/hr Vancomycin HCl 1.5 gm/ Sodium (Chloride) 500 mls @ 250 mls/hr IV Q24H [facility] Stop: 05/11/19 11:59 Last Admin: 03/12/19 13:17 Dose: 250 mls/hr Ipratropium [place] (Atrovent Neb 0.5mg/2.5ml) 0.5 mg HHN QIDRT [facility] Stop: 05/09/19 06:59 Last Admin: 03/12/19 10:34 Dose: 0.5 mg Levothyroxine Sodium (Synthroid) 0.1 mg PO QDAC [facility] Stop: 05/09/19 07:29 Last Admin: 03/12/19 06:36 Dose: 0.1 mg Magnesium Hydroxide (Milk Of Magnesia) 30 ml PO DAILY PRN PRN Reason: Constipation Stop: 05/08/19 19:03 Miscellaneous (Vancomycin Iv Per Pharmacy) 1 ea MC PRN [facility] Stop: 05/08/19 19:14 Vitamin D (Vitamin D) 400 iu PO Q12HR [facility] Stop: 05/08/19 20:59 Last Admin: 03/12/19 08:35 Dose: 400 iu Zolpidem Tartrate (Ambien) 10 mg PO HS PRN PRN Reason: Insomnia Stop: 05/08/19 19:05 General: lethargic, demented, bilateral temporal wasting, appears older HEENT: NC/AT, PERRLA Neck: Supple, No JVD Lungs: congested, rales, ronchi Cardiovascular: RRR, Normal S1, Normal S2, with murmur Abdomen: soft, non-tender, thin, positive bowel sound Extremities: excoriation, contracture Neurological: no change - Procedures Procedures: Procedures Procedure Code Date CLOSURE SKIN & SUBCUTANEOUS NEC 86.59 08/21/01 COLONOSCOPY AND BIOPSY 81362 09/04/12 CONTINUED VENTILATOR MGMT 64717 09/15/01 CONTINUOUS INVASIVE MECHANICAL VENTILATION =/>96 CONSEC HRS 96.72 09/15/01 EGD BIOPSY SINGLE/MULTIPLE 50020 04/06/17 EGD DIAGNOSTIC BRUSH WASH 53766 01/29/10 ENDOSC POLYPECTOMY OF LG INTEST 45.42 09/04/12 ESOPHAGOGASTRODUODENOSCOPY [EGD] W/CLOSED BIOPSY 45.16 07/04/14 EXCISION OF STOMACH, ENDO, DIAGN [id number] 04/06/17 INCISION OF WINDPIPE 96949 09/15/01 INITIAL INSERT OF TRANS. LEADS INTO VENTRICLE 37.71 09/15/01 INITIAL VENTILATOR MGMT 83947 09/15/01 INSERT EMERGENCY AIRWAY 91546 09/15/01 INSERT ENDOTRACHEAL TUBE 96.04 09/15/01 INSERT HEART PM VENTRICULAR 60990 09/15/01 INSERT SING CHAMB DEV, NOT SPEC RATE RESPONSIVE 37.81 09/15/01 INSERTION OF CHEST TUBE 18146 09/15/01 INTRODUCTION OF SERUM/TOX/VACCINE INTO MUSCLE, PERC APPROACH [id number] 04/06/17 NON-INVASIVE MECHANICAL VENTILATION 93.90 01/29/10 OTHER ENDOSCOPY OF SM INTEST 45.13 01/29/10 OTHER PERM TRACHEOSTOMY 31.29 09/15/01 OTHER PLEURAL INCISION 34.09 09/15/01 RPR S/N/AX/GEN/TRNK2.6-7.5CM 89726 08/21/01 Internal Medicine Assmt/Plan - Assessment Assessment: Fever, pneumonia, leukocytosis, sepsis, anemia, renal insufficiency, dementia, hypertension, coronary artery disease, history of congestive heart failure. poor po intake - Plan Plan: continue NGT for nutritional support RT to suction patient as needed as patient is congested respiratory treatments aspiration precautions am labs continue current plan of care Nutritional Asmnt/Malnutr-PDOC - Dietary Evaluation Malnutrition Findings (Please click <Entered> for more info): Nutritional Asmnt/Malnutrition Start: 03/10/19 17: 55 Text: Status: Complete Freq: Protocol: Document 03/10/19 17:56 LCHENG (Rec: 03/10/19 18:08 LCHAYDENG [email or web address]) Nutritional Asmnt/Malnutrition Patient General Information Nutritional Screening High Risk Diagnosis PNA Pertinent Medical Hx/Surgical Hx HTN, CAD, CHF, asthma/COPD, PUD/GERD, thyroid disorder, dementia Subjective Information Pt seen in bed, confused, not able to participated in communication. Per nurse note, pt failed swallow eval and kept on NPO. Current Diet Order/ Nutrition Support pureed [place] thick Pertinent Medications oscal w/vit D, D5-0.45ns, colace, synthroid, piperacillin, vancomycin, vit D Pertinent Labs 03/09 BUN 35, Glucose 114, POC 127, alb 3.3 Nutritional Hx/Data Height 5 ft 1 in Height (Calculated Centimeters) 154.9 Current Weight (lbs) 123 lb Weight (Calculated Kilograms) 55.8 Weight (Calculated Grams) 38786.9 [place] Body Weight 112 Body Mass Index (BMI) 23.2 Weight Status Approriate GI Symptoms GI Symptoms None Last BM none Difficult in: None Skin Integrity/Comment: intact Current %PO Negligible < 25% Estimated Nutritional Goals BEE in Kcals: Using Current wt Calories/Kcals/Kg 25-30 Kcals Calculated 0830-5980 Protein: Using Current wt Protein g/k Protein Calculated 56 Fluid: ml 1400-1680ml (1ml/kcal) Nutritional Problem 1. Problem Problem altered GI function Etiology swallowing difficulty Signs/Symptoms: pt falied swallow eval and on NPO Malnutrition Alert Is there a minimum of two criteria No selected? Query Text:Check all the applicable criteria. A minimum of two criteria are recommended for diagnosis of either severe or non-severe malnutrition. Malnutrition Related to Morbid Obesity Malnutrition related to morbid obesity No Intervention/Recommendation Comments 1. Monitor NPO status. Consider alternative nutrition routes if pt continue not tolerating oral intake. 2. Monitor PO intake, wt, labs and skin integrity 3. F/U as high risk in 2-3 days Expected Outcomes/Goals Expected Outcomes/Goals 1. pt to meet nutritional needs by alteranative nutrition route. 2. Wt stability, skin to remain intact, labs to approach WNL.
[2019-03-12] MEDS ORDERED: Probiotic Screen MC PRN (15:39)
[2019-03-12] MEDS: Lactobacillus Rhamnosus GG 15 Billion CFU CAP.SPRINK PO SCH (16:00)
[2019-03-12] MEDS: Calcium Carb/Vit D 500 mg/200 U Tab PO SCH (16:00)
[2019-03-13] MEDS: Albuterol Nebulizer 2.5mg/3mL HHN SCH ×2 (06:20→10:44)
[2019-03-13] MEDS: Ipratropium Neb 0.5 mg/2.5 mL UD HHN SCH ×2 (06:21→10:44)
[2019-03-13 06:33] LABS: % EOSINOPHILS 1.3 % (0.0-5.0); % LYMPHOCYTES 9.2 % (20.0-50.0); % MONOCYTES 5.3 % (2.0-10.0); % NEUTROPHILS 84.2 % (40.0-80.0); EOSINOPHILE ABSOLUTE 0.2 Th/cmm (0.1-0.4); HEMATOCRIT 32.2 % (41.0-60); HEMOGLOBIN 10.6 gm/dL (12-16); LYMPHOCYTE ABSOLUTE 1.3 Th/cmm (1.5-3.0); MEAN CELL VOLUME 95.4 fl (80-99); MEAN CORPUSCULAR HEMOGLOBIN 31.5 pg (27.0-31.0); MEAN CORPUSCULAR HGB CONC 33.1 pg (28.0-36.0); MEAN PLATELET VOLUME 7.9 fl; MONOCYTE ABSOLUTE 0.8 Th/cmm (0.3-1.0); NEUTROPHILE ABSOLUTE 12.1 Th/cmm (1.8-8.0); PLATELET COUNT 355 Th/cmm (150-400); RED BLOOD COUNT 3.37 Mil/cmm (3.80-5.80); WHITE BLOOD COUNT 14.4 Th/cmm (4.8-10.8)
[2019-03-13] MEDS: Levothyroxine 0.1 Mg Tab PO SCH (06:37)
[2019-03-13 06:57] LABS: ANION GAP 10.4 (7.0-16.0); BUN - UREA NITROGEN 12 mg/dL (7-25); CALCIUM SERUM 8.7 mg/dL (8.6-10.3); CHLORIDE 104 mEq/L (98-107); CREATININE - SERUM 0.6 mg/dL (0.7-1.3); GLUCOSE 94 mg/dL (70-105); POTASSIUM SERUM 3.4 mEq/L (3.5-5.1); SODIUM SERUM 140 mEq/L (136-145)
--- NOTE | 2019-03-13 08:58 | Discharge Summary ---
DATE OF DISCHARGE: 03/13/[address] Vinny Chris. DISCHARGE DIAGNOSES: Fever, pneumonia, leukocytosis, sepsis, anemia, renal insufficiency, dementia, dysphagia, hypertension, coronary artery disease, history of congestive heart failure. HISTORY OF PRESENT ILLNESS: This is an 83-year-old male who is a [facility] resident of [facility] admitted from nursing facility secondary to fever and congestion. Initial x-ray showed infiltrates. White count was also elevated at 23,000 in the ER. PHYSICAL EXAMINATION: GENERAL: Elderly male, appears chronically ill, no apparent distress. VITAL SIGNS: Stable. HEENT: Head: Normocephalic, atraumatic. NECK: Supple. No mass. LUNGS: Rhonchi and rales bilaterally upon auscultation. HEART: Regular rate and rhythm. No murmurs or gallops. ABDOMEN: Soft, nontender, nondistended. During hospitalization, the patient was admitted to the telemetry unit due to the patient's dysphagia. The patient had an NG tube for nutritional support. The patient also had a swallow evaluation and failed. The patient was kept on IV fluids for hydration as well as IV antibiotics of Zosyn and vancomycin. The patient seen by GI and cone picker due to the need of continuation of IV antibiotics and for PEG placement. The patient will be transferred to [facility]. CONDITION UPON DISCHARGE: Fair. DISPOSITION: [facility]. JOB# [id number]
[2019-03-13] MEDS ORDERED: Potassium Chloride Elixir 20 mEq /15 mL UDC GT ONE (09:33)
--- NOTE | 2019-03-13 09:37 | Diagnostic Imaging Report ---
Exam: Portable chest x-ray HISTORY: NG tube placement Findings: Portable initially chest at 05/21/2017 demonstrates NG tube in the stomach.
--- NOTE | 2019-03-13 10:07 | GI Progress Note ---
Subjective - Review of Systems Service Date: 03/13/19 Events since last encounter: No events Subjective: No change Tolerating tube feeding Objective - Results Result Diagrams: 03/13/19 06:14 03/13/19 06:14 Recent Labs: Laboratory Last Values WBC 14.4 Th/cmm (4.8-10.8) H 03/13/19 06:14 RBC 3.37 Mil/cmm (3.80-5.80) L 03/13/19 06:14 Hgb 10.6 gm/dL (12-16) L 03/13/19 06:14 Hct 32.2 % (41.0-60) L 03/13/19 06:14 MCV 95.4 fl (80-99) 03/13/19 06:14 MCH 31.5 pg (27.0-31.0) H 03/13/19 06:14 MCHC Differential 33.1 pg (28.0-36.0) 03/13/19 06:14 RDW 13.0 % (11.5-20.0) 03/13/19 06:14 Plt Count 355 Th/cmm (150-400) 03/13/19 06:14 MPV 7.9 fl 03/13/19 06:14 Add Manual Diff YES 03/12/19 06:12 Neutrophils % 84.2 % (40.0-80.0) H 03/13/19 06:14 Band Neutrophils % 1 % (0-10) 03/12/19 06:12 Lymphocytes % 9.2 % (20.0-50.0) L 03/13/19 06:14 Monocytes % 5.3 % (2.0-10.0) 03/13/19 06:14 Eosinophils % 1.3 % (0.0-5.0) 03/13/19 06:14 Basophils % 0.0 % (0.0-2.0) 03/13/19 06:14 Neutrophils (Manual) 80 % (40-80) 03/12/19 06:12 Lymphocytes 10 % (20-50) L 03/12/19 06:12 Monocytes 9 % (2-10) 03/12/19 06:12 Eosinophils 0 % (0-5) 03/11/19 06:22 Basophils 0 % (0-3) 03/11/19 06:22 Platelet Estimate ADEQUATE (NORMAL) 03/12/19 06:12 PT 12.3 SECONDS (9.5-11.5) H 03/09/19 18:10 INR 1.19 (0.5-1.4) 03/09/19 18:10 PTT (Actin FS) 29.7 SECONDS (26.0-38.0) 03/09/19 18:10 Sodium 140 mEq/L (136-145) 03/13/19 06:14 Potassium 3.4 mEq/L (3.5-5.1) L 03/13/19 06:14 Chloride 104 mEq/L (98-107) 03/13/19 06:14 Carbon Dioxide 29.0 mEq/L (21.0-31.0) 03/13/19 06:14 Anion Gap 10.4 (7.0-16.0) 03/13/19 06:14 BUN 12 mg/dL (7-25) 03/13/19 06:14 Creatinine 0.6 mg/dL (0.7-1.3) L 03/13/19 06:14 Est GFR ( Amer) TNP 03/13/19 06:14 Est GFR (Non-Af Amer) TNP 03/13/19 06:14 BUN/Creatinine Ratio 20.0 03/13/19 06:14 Glucose 94 mg/dL (70-105) 03/13/19 06:14 POC Glucose 127 MG/DL (70 - 105) H 03/09/19 22:51 Whole Bld Lactic Acid 1.01 mmol/L (0.60-1.99) 03/09/19 18:10 Calcium 8.7 mg/dL (8.6-10.3) 03/13/19 06:14 Magnesium 2.0 mg/dL (1.9-2.7) 03/12/19 06:12 Total Bilirubin 0.4 mg/dL (0.3-1.0) 03/11/19 06:22 AST 8 U/L (13-39) L 03/11/19 06:22 ALT 6 U/L (7-52) L 03/11/19 06:22 Alkaline Phosphatase 47 U/L (34-104) 03/11/19 06:22 Ammonia 43 umol/L (16-53) 03/11/19 06:22 Creatine Kinase 59 U/L (30-223) 03/09/19 18:10 B-Natriuretic Peptide 296.0 pg/mL (5.0-100.0) H 03/11/19 06:22 Total Protein 6.1 gm/dL (6.0-8.3) 03/11/19 06:22 Albumin 2.7 gm/dL (4.2-5.5) L 03/11/19 06:22 Globulin 3.4 gm/dL 03/11/19 06:22 Albumin/Globulin Ratio 0.8 (1.0-1.8) L 03/11/19 06:22 Vitamin B12 452 pg/mL (232-1245) 03/11/19 06:22 Folic Acid 15.1 ng/mL (>3.0) 03/11/19 06:22 TSH 1.25 uIU/ml (0.34-5.60) 03/11/19 06:22 Vancomycin Trough 11.2 ug/mL (5-10) H 03/12/19 10:35 - Physical Exam Vitals and I&O: Vital Signs Temp 98.7 F 03/13/19 08:00 Pulse 92 03/13/19 08:00 Resp 21 03/13/19 08:00 BP 130/62 03/13/19 08:00 Pulse Ox 93 03/13/19 08:00 Intake & Output 03/12/19 03/13/19 03/13/19 18:59 06:59 18:59 Intake Total 400 100 Balance 400 100 Weight (lbs) 58.967 kg Intake: Intake, IV Amount 100 100 Piperacillin Sodium/ 100 100 Tazobact 4.5 gm In Sodium Chloride 0.9% 100 ml @ 100 mls/hr IV Q8HR [facility] Rx #:[id number] Tube Feeding 300 Other: # Voids 4 # Bowel Movements 0 Weight Source Bedscale Active Medications: Current Medications Acetaminophen (Tylenol) 650 mg PO Q4H PRN PRN Reason: Pain Or Fever above 101 Stop: 05/08/19 19:05 Albuterol Sulfate (Albuterol 2.5mg/3ml Neb Ud) 2.5 mg HHN QIDRT [facility] Stop: 05/09/19 06:59 Last Admin: 03/13/19 06:20 Dose: 2.5 mg Aspirin (Aspirin Chewable) 81 mg PO DAILY [facility] Stop: 05/09/19 08:59 Last Admin: 03/12/19 08:35 Dose: 81 mg Calcium/Vitamin D (Oscal W/Vitamin D) 1 tab PO QPM [facility] Stop: 05/09/19 16:59 Last Admin: 03/12/19 16:00 Dose: 1 tab Diltiazem HCl (Cardizem) 20 mg IVP Q4H PRN PRN Reason: HR Greater than 130 per min Stop: 05/09/19 11:49 Last Admin: 03/10/19 12:16 Dose: 20 mg Divalproex Sodium (Depakote Sprinkle) 250 mg PO Q12HR [facility]; Protocol Stop: 05/08/19 20:59 Last Admin: 03/12/19 20:48 Dose: 250 mg Docusate Sodium (Colace) 100 mg PO DAILY [facility] Stop: 05/09/19 08:59 Last Admin: 03/12/19 08:35 Dose: 100 mg Donepezil HCl (Aricept) 10 mg PO HS [facility] Stop: 05/08/19 20:59 Last Admin: 03/12/19 20:49 Dose: 10 mg Guaifenesin (Robitussin) 200 mg PO Q4HR PRN PRN Reason: Cough or Congestion Stop: 05/08/19 19:05 Dextrose/Sodium Chloride (D5-0.45ns) 1,000 mls @ 80 mls/hr IV .[id number] [facility] Stop: 05/08/19 19:14 Last Admin: 03/12/19 12:06 Dose: 80 mls/hr Piperacillin Sod/Tazobactam (Sod 4.5 gm/ Sodium Chloride) 100 mls @ 100 mls/hr IV Q8HR [facility] Stop: 05/08/19 20:59 Last Admin: 03/13/19 04:40 Dose: 100 mls/hr Vancomycin HCl 1.5 gm/ Sodium (Chloride) 500 mls @ 250 mls/hr IV Q24H [facility] Stop: 05/11/19 11:59 Last Admin: 03/12/19 13:17 Dose: 250 mls/hr Ipratropium [place] (Atrovent Neb 0.5mg/2.5ml) 0.5 mg HHN QIDRT [facility] Stop: 05/09/19 06:59 Last Admin: 03/13/19 06:21 Dose: 0.5 mg Lactobacillus Rhamnosus (Culturelle 15b) 1 each PO DAILY [facility] Stop: 05/11/19 15:59 Last Admin: 03/12/19 16:00 Dose: 1 each Levothyroxine Sodium (Synthroid) 0.1 mg PO QDAC [facility] Stop: 05/09/19 07:29 Last Admin: 03/13/19 06:37 Dose: 0.1 mg Magnesium Hydroxide (Milk Of Magnesia) 30 ml PO DAILY PRN PRN Reason: Constipation Stop: 05/08/19 19:03 Miscellaneous (Vancomycin Iv Per Pharmacy) 1 ea PRN [facility] Stop: 05/08/19 19:14 Miscellaneous (Probiotic Screen) 1 [facility] PRN PRN PRN Reason: PROTOCOL Stop: 05/11/19 15:38 Vitamin D (Vitamin D) 400 iu PO Q12HR [facility] Stop: 05/08/19 20:59 Last Admin: 03/12/19 20:49 Dose: 400 iu Zolpidem Tartrate (Ambien) 10 mg PO HS PRN PRN Reason: Insomnia Stop: 05/08/19 19:05 General: No acute distress HEENT: Mucous membr. moist/pink Cardiovascular: Regular rate, Normal S1, Normal S2, Systolic murmurs, Other Lungs: Clear to auscultation (tachycardia), Other (wheezing and rhonchi) Abdomen: Bowel sounds, Soft, Other (no organomegaly), no Tender Extremities: Edema (no pedal edema) Neurological: Strength at 5/5 X4 ext, Normal tone, Cranial nerves 3-12 NL, Reflexes 2+ - Procedures Procedures: Procedures Procedure Code Date CLOSURE SKIN & SUBCUTANEOUS NEC 86.59 08/21/01 COLONOSCOPY AND BIOPSY 17287 09/04/12 CONTINUED VENTILATOR MGMT 30885 09/15/01 CONTINUOUS INVASIVE MECHANICAL VENTILATION =/>96 CONSEC HRS 96.72 09/15/01 EGD BIOPSY SINGLE/MULTIPLE 96403 04/06/17 EGD DIAGNOSTIC BRUSH WASH 07401 01/29/10 ENDOSC POLYPECTOMY OF LG INTEST 45.42 09/04/12 ESOPHAGOGASTRODUODENOSCOPY [EGD] W/CLOSED BIOPSY 45.16 07/04/14 EXCISION OF STOMACH, ENDO, DIAGN [id number] 04/06/17 INCISION OF WINDPIPE 35389 09/15/01 INITIAL INSERT OF TRANS. LEADS INTO VENTRICLE 37.71 09/15/01 INITIAL VENTILATOR MGMT 75592 09/15/01 INSERT EMERGENCY AIRWAY 14821 09/15/01 INSERT ENDOTRACHEAL TUBE 96.04 09/15/01 INSERT HEART PM VENTRICULAR 19014 09/15/01 INSERT SING CHAMB DEV, NOT SPEC RATE RESPONSIVE 37.81 09/15/01 INSERTION OF CHEST TUBE 92131 09/15/01 INTRODUCTION OF SERUM/TOX/VACCINE INTO MUSCLE, PERC APPROACH [id number] 04/06/17 NON-INVASIVE MECHANICAL VENTILATION 93.90 01/29/10 OTHER ENDOSCOPY OF SM INTEST 45.13 01/29/10 OTHER PERM TRACHEOSTOMY 31.29 09/15/01 OTHER PLEURAL INCISION 34.09 09/15/01 RPR S/N/AX/GEN/TRNK2.6-7.5CM 92759 08/21/01 Assessment/Plan - Plan Plan: Dysphagia Cont NG feeding If no improvement in couple of days then PEG
[2019-03-13] MEDS: Aspirin 81mg Chewable Tab PO SCH (10:21)
[2019-03-13] MEDS: Lactobacillus Rhamnosus GG 15 Billion CFU CAP.SPRINK PO SCH (11:32)
[2019-03-13] MEDS: Vancomycin HCl 1.5 GM in Sodium Chloride 0.9% 500 ML IV SCH (11:32)
--- NOTE | 2019-03-13 14:09 | General Progress Note ---
Subjective - Review of Systems Service Date: 03/13/19 Subjective: Patient still complained of shortness of breath congestion occasional palpitation [place] patient failed swallow eval Patient will be transferred to [facility] Objective - Results Result Diagrams: 03/13/19 06:14 03/13/19 06:14 Recent Labs: Laboratory Last Values WBC 14.4 Th/cmm (4.8-10.8) H 03/13/19 06:14 RBC 3.37 Mil/cmm (3.80-5.80) L 03/13/19 06:14 Hgb 10.6 gm/dL (12-16) L 03/13/19 06:14 Hct 32.2 % (41.0-60) L 03/13/19 06:14 MCV 95.4 fl (80-99) 03/13/19 06:14 MCH 31.5 pg (27.0-31.0) H 03/13/19 06:14 MCHC Differential 33.1 pg (28.0-36.0) 03/13/19 06:14 RDW 13.0 % (11.5-20.0) 03/13/19 06:14 Plt Count 355 Th/cmm (150-400) 03/13/19 06:14 MPV 7.9 fl 03/13/19 06:14 Add Manual Diff YES 03/12/19 06:12 Neutrophils % 84.2 % (40.0-80.0) H 03/13/19 06:14 Band Neutrophils % 1 % (0-10) 03/12/19 06:12 Lymphocytes % 9.2 % (20.0-50.0) L 03/13/19 06:14 Monocytes % 5.3 % (2.0-10.0) 03/13/19 06:14 Eosinophils % 1.3 % (0.0-5.0) 03/13/19 06:14 Basophils % 0.0 % (0.0-2.0) 03/13/19 06:14 Neutrophils (Manual) 80 % (40-80) 03/12/19 06:12 Lymphocytes 10 % (20-50) L 03/12/19 06:12 Monocytes 9 % (2-10) 03/12/19 06:12 Eosinophils 0 % (0-5) 03/11/19 06:22 Basophils 0 % (0-3) 03/11/19 06:22 Platelet Estimate ADEQUATE (NORMAL) 03/12/19 06:12 PT 12.3 SECONDS (9.5-11.5) H 03/09/19 18:10 INR 1.19 (0.5-1.4) 03/09/19 18:10 PTT (Actin FS) 29.7 SECONDS (26.0-38.0) 03/09/19 18:10 Sodium 140 mEq/L (136-145) 03/13/19 06:14 Potassium 3.4 mEq/L (3.5-5.1) L 03/13/19 06:14 Chloride 104 mEq/L (98-107) 03/13/19 06:14 Carbon Dioxide 29.0 mEq/L (21.0-31.0) 03/13/19 06:14 Anion Gap 10.4 (7.0-16.0) 03/13/19 06:14 BUN 12 mg/dL (7-25) 03/13/19 06:14 Creatinine 0.6 mg/dL (0.7-1.3) L 03/13/19 06:14 Est GFR ( Amer) TNP 03/13/19 06:14 Est GFR (Non-Af Amer) TNP 03/13/19 06:14 BUN/Creatinine Ratio 20.0 03/13/19 06:14 Glucose 94 mg/dL (70-105) 03/13/19 06:14 POC Glucose 127 MG/DL (70 - 105) H 03/09/19 22:51 Whole Bld Lactic Acid 1.01 mmol/L (0.60-1.99) 03/09/19 18:10 Calcium 8.7 mg/dL (8.6-10.3) 03/13/19 06:14 Magnesium 2.0 mg/dL (1.9-2.7) 03/12/19 06:12 Total Bilirubin 0.4 mg/dL (0.3-1.0) 03/11/19 06:22 AST 8 U/L (13-39) L 03/11/19 06:22 ALT 6 U/L (7-52) L 03/11/19 06:22 Alkaline Phosphatase 47 U/L (34-104) 03/11/19 06:22 Ammonia 43 umol/L (16-53) 03/11/19 06:22 Creatine Kinase 59 U/L (30-223) 03/09/19 18:10 B-Natriuretic Peptide 296.0 pg/mL (5.0-100.0) H 03/11/19 06:22 Total Protein 6.1 gm/dL (6.0-8.3) 03/11/19 06:22 Albumin 2.7 gm/dL (4.2-5.5) L 03/11/19 06:22 Globulin 3.4 gm/dL 03/11/19 06:22 Albumin/Globulin Ratio 0.8 (1.0-1.8) L 03/11/19 06:22 Vitamin B12 452 pg/mL (232-1245) 03/11/19 06:22 Folic Acid 15.1 ng/mL (>3.0) 03/11/19 06:22 TSH 1.25 uIU/ml (0.34-5.60) 03/11/19 06:22 Vancomycin Trough 11.2 ug/mL (5-10) H 03/12/19 10:35 - Physical Exam Vitals and I&O: Vital Signs Temp 98.6 F 03/13/19 13:00 Pulse 89 03/13/19 13:00 Resp 16 03/13/19 13:00 BP 120/73 03/13/19 13:00 Pulse Ox 94 03/13/19 11:58 Intake & Output 03/12/19 03/13/19 03/13/19 18:59 06:59 18:59 Intake Total 900 200 Balance 900 200 Weight (lbs) 58.967 kg Intake: Intake, IV Amount 600 200 Piperacillin Sodium/ 100 200 Tazobact 4.5 gm In Sodium Chloride 0.9% 100 ml @ 100 mls/hr IV Q8HR [facility] Rx #:[id number] Vancomycin HCl 1.5 gm In 500 Sodium Chloride 0.9% 500 ml @ 250 mls/hr IV Q24H [facility] Rx#:[id number] Tube Feeding 300 Other: # Voids 4 # Bowel Movements 0 Weight Source Bedscale Active Medications: Current Medications Acetaminophen (Tylenol) 650 mg PO Q4H PRN PRN Reason: Pain Or Fever above 101 Stop: 05/08/19 19:05 Albuterol Sulfate (Albuterol 2.5mg/3ml Neb Ud) 2.5 mg HHN QIDRT [facility] Stop: 05/09/19 06:59 Last Admin: 03/13/19 10:44 Dose: 2.5 mg Aspirin (Aspirin Chewable) 81 mg PO DAILY [facility] Stop: 05/09/19 08:59 Last Admin: 03/13/19 10:21 Dose: 81 mg Calcium/Vitamin D (Oscal W/Vitamin D) 1 tab PO QPM [facility] Stop: 05/09/19 16:59 Last Admin: 03/12/19 16:00 Dose: 1 tab Diltiazem HCl (Cardizem) 20 mg IVP Q4H PRN PRN Reason: HR Greater than 130 per min Stop: 05/09/19 11:49 Last Admin: 03/10/19 12:16 Dose: 20 mg Divalproex Sodium (Depakote Sprinkle) 250 mg PO Q12HR [facility]; Protocol Stop: 05/08/19 20:59 Last Admin: 03/13/19 10:21 Dose: 250 mg Docusate Sodium (Colace) 100 mg PO DAILY [facility] Stop: 05/09/19 08:59 Last Admin: 03/13/19 10:21 Dose: 100 mg Donepezil HCl (Aricept) 10 mg PO HS [facility] Stop: 05/08/19 20:59 Last Admin: 03/12/19 20:49 Dose: 10 mg Guaifenesin (Robitussin) 200 mg PO Q4HR PRN PRN Reason: Cough or Congestion Stop: 05/08/19 19:05 Dextrose/Sodium Chloride (D5-0.45ns) 1,000 mls @ 80 mls/hr IV .[id number] [facility] Stop: 05/08/19 19:14 Last Admin: 03/12/19 12:06 Dose: 80 mls/hr Piperacillin Sod/Tazobactam (Sod 4.5 gm/ Sodium Chloride) 100 mls @ 100 mls/hr IV Q8HR [facility] Stop: 05/08/19 20:59 Last Admin: 03/13/19 13:39 Dose: 100 mls/hr Vancomycin HCl 1.5 gm/ Sodium (Chloride) 500 mls @ 250 mls/hr IV Q24H [facility] Stop: 05/11/19 11:59 Last Admin: 03/13/19 11:32 Dose: 250 mls/hr Ipratropium [place] (Atrovent Neb 0.5mg/2.5ml) 0.5 mg HHN QIDRT [facility] Stop: 05/09/19 06:59 Last Admin: 03/13/19 10:44 Dose: 0.5 mg Lactobacillus Rhamnosus (Culturelle 15b) 1 each PO DAILY [facility] Stop: 05/11/19 15:59 Last Admin: 03/13/19 11:32 Dose: 1 each Levothyroxine Sodium (Synthroid) 0.1 mg PO QDAC [facility] Stop: 05/09/19 07:29 Last Admin: 03/13/19 06:37 Dose: 0.1 mg Magnesium Hydroxide (Milk Of Magnesia) 30 ml PO DAILY PRN PRN Reason: Constipation Stop: 05/08/19 19:03 Miscellaneous (Vancomycin Iv Per Pharmacy) 1 ea [facility] PRN [facility] Stop: 05/08/19 19:14 Miscellaneous (Probiotic Screen) 1 [facility] PRN PRN PRN Reason: PROTOCOL Stop: 05/11/19 15:38 Vitamin D (Vitamin D) 400 iu PO Q12HR [facility] Stop: 05/08/19 20:59 Last Admin: 03/13/19 10:21 Dose: 400 iu Zolpidem Tartrate (Ambien) 10 mg PO HS PRN PRN Reason: Insomnia Stop: 05/08/19 19:05 General: No acute distress HEENT: Mucous membr. moist/pink Neck: Supple, JVD, +2 carotid pulse wo bruit (flat) Cardiovascular: Regular rate, Normal S1, Normal S2, Systolic murmurs, Other Lungs: Clear to auscultation (tachycardia), Other (wheezing and rhonchi) Abdomen: Bowel sounds, Soft, Other (no organomegaly), no Tender Extremities: Edema (no pedal edema) Neurological: Strength at 5/5 X4 ext, Normal tone, Cranial nerves 3-12 NL, Reflexes 2+ - Procedures Procedures: Procedures Procedure Code Date CLOSURE SKIN & SUBCUTANEOUS NEC 86.59 08/21/01 COLONOSCOPY AND BIOPSY 84037 09/04/12 CONTINUED VENTILATOR MGMT 68501 09/15/01 CONTINUOUS INVASIVE MECHANICAL VENTILATION =/>96 CONSEC HRS 96.72 09/15/01 EGD BIOPSY SINGLE/MULTIPLE 78588 04/06/17 EGD DIAGNOSTIC BRUSH WASH 47262 01/29/10 ENDOSC POLYPECTOMY OF LG INTEST 45.42 09/04/12 ESOPHAGOGASTRODUODENOSCOPY [EGD] W/CLOSED BIOPSY 45.16 07/04/14 EXCISION OF STOMACH, ENDO, DIAGN [id number] 04/06/17 INCISION OF WINDPIPE 50200 09/15/01 INITIAL INSERT OF TRANS. LEADS INTO VENTRICLE 37.71 09/15/01 INITIAL VENTILATOR MGMT 72258 09/15/01 INSERT EMERGENCY AIRWAY 92950 09/15/01 INSERT ENDOTRACHEAL TUBE 96.04 09/15/01 INSERT HEART PM VENTRICULAR 19918 09/15/01 INSERT SING CHAMB DEV, NOT SPEC RATE RESPONSIVE 37.81 09/15/01 INSERTION OF CHEST TUBE 79516 09/15/01 INTRODUCTION OF SERUM/TOX/VACCINE INTO MUSCLE, PERC APPROACH [id number] 04/06/17 NON-INVASIVE MECHANICAL VENTILATION 93.90 01/29/10 OTHER ENDOSCOPY OF SM INTEST 45.13 01/29/10 OTHER PERM TRACHEOSTOMY 31.29 09/15/01 OTHER PLEURAL INCISION 34.09 09/15/01 RPR S/N/AX/GEN/TRNK2.6-7.5CM 49444 08/21/01 Assessment/Plan - Assessment Assessment: Supraventricular tachycardia Sepsis Protein calorie malnutrition Dementia Hypertension Congestive heart failure chronic Stable angina COPD Cerebral palsy - Plan Plan: Continue IV antibiotics we'll start patient on Cardizem 20 mg IV push every 4 hours when necessary to control heart rate as patient ECHOCARDIOGRAM IV antibiotics No K to "[address] [place] [address] Nutritional Asmnt/Malnutr-PDOC - Dietary Evaluation Malnutrition Findings (Please click <Entered> for more info): Nutritional Asmnt/Malnutrition Start: 03/10/19 17: 55 Text: Status: Complete Freq: Protocol: Document 03/10/19 17:56 LCHENG (Rec: 03/10/19 18:08 [email or web address]) Nutritional Asmnt/Malnutrition Patient General Information Nutritional Screening High Risk Diagnosis PNA Pertinent Medical Hx/Surgical Hx HTN, CAD, CHF, asthma/COPD, PUD/GERD, thyroid disorder, dementia Subjective Information Pt seen in bed, confused, not able to participated in communication. Per nurse note, pt failed swallow eval and kept on NPO. Current Diet Order/ Nutrition Support pureed [place] thick Pertinent Medications oscal w/vit D, D5-0.45ns, colace, synthroid, piperacillin, vancomycin, vit D Pertinent Labs 03/09 BUN 35, Glucose 114, POC 127, alb 3.3 Nutritional Hx/Data Height 1.55 m Height (Calculated Centimeters) 154.9 Current Weight (lbs) 55.792 kg Weight (Calculated Kilograms) 55.8 Weight (Calculated Grams) 37151.9 [place] Body Weight 112 Body Mass Index (BMI) 23.2 Weight Status Approriate GI Symptoms GI Symptoms None Last BM none Difficult in: None Skin Integrity/Comment: intact Current %PO Negligible < 25% Estimated Nutritional Goals BEE in Kcals: Using Current wt Calories/Kcals/Kg 25-30 Kcals Calculated 7537-2858 Protein: Using Current wt Protein g/k Protein Calculated 56 Fluid: ml 1400-1680ml (1ml/kcal) Nutritional Problem 1. Problem Problem altered GI function Etiology swallowing difficulty Signs/Symptoms: pt falied swallow eval and on NPO Malnutrition Alert Is there a minimum of two criteria No selected? Query Text:Check all the applicable criteria. A minimum of two criteria are recommended for diagnosis of either severe or non-severe malnutrition. Malnutrition Related to Morbid Obesity Malnutrition related to morbid obesity No Intervention/Recommendation Comments 1. Monitor NPO status. Consider alternative nutrition routes if pt continue not tolerating oral intake. 2. Monitor PO intake, wt, labs and skin integrity 3. F/U as high risk in 2-3 days Expected Outcomes/Goals Expected Outcomes/Goals 1. pt to meet nutritional needs by alteranative nutrition route. 2. Wt stability, skin to remain intact, labs to approach WNL.
== END 2019-03-13 15:06 | DRG 871 ==
LOC: ER 17:16 → TELE 19:33
PROVIDERS: ADMIT Internal Medicine; ATTEND Internal Medicine
DX: A41.9 Sepsis, unspecified organism (principal); J18.9 Pneumonia, unspecified organism; J44.0 Chronic obstructive pulmonary disease with (acute) lower respiratory infection; I47.1 Supraventricular tachycardia; E46 Unspecified protein-calorie malnutrition; N28.9 Disorder of kidney and ureter, unspecified; I11.0 Hypertensive heart disease with heart failure; I50.9 Heart failure, unspecified; K21.9 Gastro-esophageal reflux disease without esophagitis; F03.90 Unspecified dementia, unspecified severity, without behavioral disturbance, psychotic disturbance, mood disturbance, and anxiety; E86.0 Dehydration; D64.9 Anemia, unspecified; I25.119 Atherosclerotic heart disease of native coronary artery with unspecified angina pectoris; G80.9 Cerebral palsy, unspecified; R13.10 Dysphagia, unspecified; Z68.24 Body mass index [BMI] 24.0-24.9, adult
CPT/HCPCS: 36415-UA; 70450-TC; 71045-TC; 80048-TC; 80053-TC; 80202-TC; 82140-TC; 82550-TC; 82607-90; 82746-90; 82948-90; 83605; 83735-TC; 83880-TC; 84443-TC; 85007-TC; 85025-TC; 85610-TC; 85730-TC; 87070; 90779; 93005; 94640; 94760; J1956; J2543; J3370; J7040; J7613; X3401; Z7610